=== PATIENT | male | born 1970 | race Caucasian/White ===

== ENCOUNTER 2018-04-21 10:05 | Outpatient (REF) | payer MEDICARE, SELFPAY ==
[2018-04-21 22:02] LABS: BUN 16 mg/dL (7-18); CREATININE 1.12 mg/dL (0.70-1.30); Calcium 9.2 mg/dL (8.5-10.1); Chloride 103 mmol/L (98-107); Glucose 92 mg/dL (70-100); Sodium 141 mmol/L (136-145)
[2018-04-24 15:16] LABS: Testosterone, Free 18.5 ng/dL (4.26-16.4); Testosterone, Total 617 ng/dL (240-950)
== END 2018-04-21 10:25 ==
LOC: NCHCN 10:05
PROVIDERS: PCP Internal Medicine; Visit Provider Internal Medicine
DX: E29.1 Testicular hypofunction (principal); I10 Essential (primary) hypertension
CPT/HCPCS: 80048; 84402; 84403

== ENCOUNTER 2018-11-10 14:22 | Outpatient (REF) | payer MEDICARE, SELFPAY ==
[2018-11-10 22:22] LABS: TSH (W/Ref FT4) 1.59 uIU/mL (0.358-3.74)
[2018-11-13 16:43] LABS: Testosterone, Free 6.98 ng/dL (4.26-16.4); Testosterone, Total 279 ng/dL (240-950)
== END 2018-11-10 14:42 ==
LOC: NCHCN 14:22
PROVIDERS: PCP Internal Medicine; Visit Provider Internal Medicine
DX: E29.1 Testicular hypofunction (principal); R53.83 Other fatigue; E55.9 Vitamin D deficiency, unspecified
CPT/HCPCS: 82306; 84402; 84403; 84443

== ENCOUNTER 2019-04-27 14:42 | Outpatient (REF) | payer OTHER, SELFPAY ==
[2019-04-27 21:29] LABS: Anion Gap 9.8 mmol/L (3-11); BUN 14 mg/dL (7-18); CO2 31.2 mmol/L (21.0-32.0); CREATININE 1.15 mg/dL (0.70-1.30); Chloride 99 mmol/L (98-107); Glucose 106 mg/dL (74-106); Sodium 140 mmol/L (136-145)
== END 2019-04-27 15:02 ==
LOC: NCHCN 14:42
PROVIDERS: Visit Provider Internal Medicine
DX: I10 Essential (primary) hypertension (principal)
CPT/HCPCS: 80048

== ENCOUNTER 2019-05-08 14:14 | Outpatient (REF) | payer OTHER, SELFPAY ==
[2019-05-08 21:20] LABS: Lipase 288 U/L (73-393); Magnesium 2.1 mg/dL (1.8-2.4)
== END 2019-05-08 14:34 ==
LOC: NCHCN 14:14
PROVIDERS: Visit Provider Internal Medicine
DX: Z87.19 Personal history of other diseases of the digestive system (principal)
CPT/HCPCS: 83690; 83735

== ENCOUNTER 2019-11-06 01:50 | Outpatient (REF) | payer OTHER, SELFPAY ==
[2019-11-06 21:46] LABS: HCT 45.9 % (40.0-50.0); HGB 15.7 g/dL (13.5-17.5); Mean Corp. HGB Concentration 34.2 g/dL (32.0-36.0); Mean Corpuscular Hemoglobin 29.3 pg (27.0-33.0); Mean Corpuscular Volume 85.8 fL (80-95); Mean Platelet Volume 9.8 fL (8.0-11.0); Platelet Count 245 x1000/uL (130-400); RBC 5.35 m/cumm (4.50-6.00); RBC Distribution Width 13.9 % (11.8-14.1); White Blood Cell Count 9.41 k/cumm (4.4-10.8)
[2019-11-06 22:00] LABS: Calculated LDL 128 mg/dL (<100); Cholesterol 220 mg/dL (<200); HDL Cholesterol 51 mg/dL (40-60); Triglyceride 208 mg/dL (<150)
[2019-11-11 12:28] LABS: Testosterone, Free 3.43 ng/dL (4.26-16.4); Testosterone, Total 156 ng/dL (240-950)
== END 2019-11-06 02:10 ==
LOC: NCHCN 01:50
PROVIDERS: PCP Internal Medicine; Visit Provider Internal Medicine
DX: K92.1 Melena (principal); E29.1 Testicular hypofunction; I10 Essential (primary) hypertension; Z13.6 Encounter for screening for cardiovascular disorders
CPT/HCPCS: 80061; 84402; 84403; 85027

== ENCOUNTER 2019-12-30 12:38 | Outpatient (REF) | payer OTHER, SELFPAY ==
[2020-01-02 16:08] LABS: Testosterone, Free 35.2 ng/dL (4.26-16.4); Testosterone, Total 1100 ng/dL (240-950)
== END 2019-12-30 12:58 ==
LOC: NCHCN 12:38
PROVIDERS: PCP Internal Medicine; Visit Provider Internal Medicine
DX: E29.1 Testicular hypofunction (principal); K92.1 Melena; Z13.220 Encounter for screening for lipoid disorders
CPT/HCPCS: 84402; 84403

== ENCOUNTER 2020-06-29 15:30 | Outpatient (REF) | payer OTHER, SELFPAY ==
[2020-07-02 15:48] LABS: Testosterone, Free 23.7 ng/dL (4.26-16.4); Testosterone, Total 719 ng/dL (240-950)
== END 2020-06-29 15:31 | disposition home or self-care (01) ==
LOC: NCHCN 15:30
PROVIDERS: PCP Internal Medicine; Visit Provider Internal Medicine
DX: E29.1 Testicular hypofunction (principal)
CPT/HCPCS: 84402; 84403

== ENCOUNTER 2020-07-27 14:45 | Outpatient (REF) | payer OTHER, SELFPAY ==
[2020-07-27 22:16] LABS: Hemoglobin A1C 5.6 % (<5.7)
[2020-07-27 22:20] LABS: ALT 57 U/L (16-63); AST 40 U/L (15-37); Albumin 4.3 g/dL (3.4-5.0); Alkaline Phosphatase 74 U/L (46-116); Anion Gap 10.1 mmol/L (3-11); BUN 16 mg/dL (7-18); Bilirubin, Total 0.9 mg/dL (0.2-1.0); CO2 28.9 mmol/L (21.0-32.0); CREATININE 1.1 mg/dL (0.70-1.30); Calcium 9.3 mg/dL (8.5-10.1); Chloride 101 mmol/L (98-107); Glucose 87 mg/dL (74-106); Potassium 4.1 mmol/L (3.5-5.1); Sodium 140 mmol/L (136-145); Total Protein 8.1 g/dL (6.4-8.2)
[2020-08-01 14:05] LABS: Testosterone, Free 17.8 ng/dL (4.26-16.4); Testosterone, Total 540 ng/dL (240-950)
== END 2020-07-27 14:46 | disposition home or self-care (01) ==
LOC: NCHCN 14:45
PROVIDERS: PCP Internal Medicine; Visit Provider Internal Medicine
DX: I10 Essential (primary) hypertension (principal); R73.9 Hyperglycemia, unspecified; E29.1 Testicular hypofunction
CPT/HCPCS: 80053; 84402; 84403; 83036

== ENCOUNTER 2020-10-05 13:16 | Outpatient (REF) | payer OTHER, SELFPAY ==
[2020-10-10 11:20] LABS: Testosterone, Free 12.9 ng/dL (4.26-16.4); Testosterone, Total 392 ng/dL (240-950)
== END 2020-10-05 13:17 | disposition home or self-care (01) ==
LOC: NCHCN 13:16
PROVIDERS: PCP Internal Medicine; Visit Provider Internal Medicine
DX: E29.1 Testicular hypofunction (principal)
CPT/HCPCS: 84402; 84403

== ENCOUNTER 2021-07-31 18:20 | Outpatient (REF) | payer OTHER, SELFPAY ==
[2021-07-31 16:19] LABS: ALT 45 U/L (16-63); AST 34 U/L (15-37); Albumin 4.3 g/dL (3.4-5.0); Alkaline Phosphatase 71 U/L (46-116); Anion Gap 8.6 mmol/L (3-11); BUN 20 mg/dL (7-18); Bilirubin, Total 0.5 mg/dL (0.2-1.0); CO2 28.4 mmol/L (21.0-32.0); CREATININE 1.1 mg/dL (0.70-1.30); Calcium 9.6 mg/dL (8.5-10.1); Calculated LDL 108 mg/dL (<100); Chloride 102 mmol/L (98-107); Cholesterol 177 mg/dL (<200); Glucose 109 mg/dL (74-106); HDL Cholesterol 56 mg/dL (40-60); Sodium 139 mmol/L (136-145); Triglyceride 66 mg/dL (<150)
[2021-08-04 11:16] LABS: Testosterone, Free 44.1 ng/dL (4.26-16.4); Testosterone, Total 1520 ng/dL (240-950)
== END 2021-07-31 18:21 | disposition home or self-care (01) ==
LOC: NCHCN 18:20
PROVIDERS: PCP Internal Medicine; Visit Provider Internal Medicine
DX: E78.5 Hyperlipidemia, unspecified (principal); I10 Essential (primary) hypertension; E29.1 Testicular hypofunction
CPT/HCPCS: 80053; 80061; 84402; 84403

== ENCOUNTER 2021-09-18 09:59 | Outpatient (REF) | payer MEDICARE, SELFPAY ==
[2021-09-23 10:32] LABS: Testosterone, Free 20.8 ng/dL (4.06-15.6); Testosterone, Total 770 ng/dL (240-950)
== END 2021-09-18 10:00 | disposition home or self-care (01) ==
LOC: NCHCN 09:59
PROVIDERS: PCP Internal Medicine; Visit Provider Internal Medicine
DX: E29.1 Testicular hypofunction (principal)
CPT/HCPCS: 84402; 84403

== ENCOUNTER 2021-11-08 16:57 | Outpatient (REF) | payer MEDICARE, SELFPAY ==
[2021-11-08 23:17] LABS: PSA, Screening 0.7 ng/mL (<=3.5)
[2021-11-13 10:26] LABS: Testosterone, Free 15.4 ng/dL (4.06-15.6); Testosterone, Total 531 ng/dL (240-950)
== END 2021-11-08 16:58 | disposition home or self-care (01) ==
LOC: NCHCN 16:57
PROVIDERS: PCP Internal Medicine; Visit Provider Nurse Practitioner Family
DX: E29.1 Testicular hypofunction (principal); Z12.5 Encounter for screening for malignant neoplasm of prostate
CPT/HCPCS: 84153; 84402; 84403

== ENCOUNTER 2023-05-20 08:53 | Inpatient (IN) | payer MEDICARE, SELFPAY ==
[2023-05-20] VITALS (44 sets, daily range): BP systolic 142–198; BP diastolic 63–115; PULSE 51–97; RESP 8–22; TEMP 36.6–37.2; O2SAT 94–99
--- OUTSIDE RECORDS SUMMARY | 2023-05-20 09:07 | XMS_ITS | CCD ---
Author Name Unknown Address [address] [place] [address] [phone] Organization Unknown Address [address] [place] [address] [id number] Care Team Providers Care Fisheries Officer Name Role Phone AARON GARCIA Attending Physician [phone] AARON GARCIA Rounding (Secondary) Physician [phone] Vital Signs Unknown or Not Available. Allergies Allergy Code Allergy Type Reaction Status TORADOL {Deactivated Allergy} 24122 Drug allergy SUJATA K OUT Active GABAPENTIN 01854 Drug allergy Hives Active Procedures Unknown or Not Available. History of Immunizations Unknown or Not Available. Problems Problem Code Start Date Resolved Date Status Right flank pain 527131474 Active Crohns 38842210 12/06/2022 Resolved Stroke 860741109 12/06/2022 Resolved Results Unknown or Not Available. Active Medications Medication Code Dose Units Frequency Route Modificatio n Start Date/Time Lidocaine 5% Topical application Patch, Extended Release 3882704 1 TRANSDERMAL PATCH NEEDED EVERY 12 HOURS TRANSDERMAL 12/06/2022 13:20 Prescription Detail APPLY 1 TRANSDERMAL PATCH TRANSDERMAL fo r 12 hours a day only. As needed. Medications Administered During Visit Unknown or Not Available. Encounters Encounter Diagnosis Diagnosis Code Start Date Follow-up orthopedic assessment [id number] 05/11/2021 Social History Smoking Status Code Start Date End Date Former smoker [id number] 05/27/2007 Patient Decision Aids Unknown or Not Available. Discharge Instructions You were admitted to [facility] on 05/11/2021 07:51 with a principal diagnosis of Encounter for other orthopedic aftercare You were discharged from [facility] on 05/11/2021 00:00 Should you have any questions prior to discharge, please contact a member of your healthcare team. If you have left the hospital and have any questions, please contact your primary care physician. Chief Complaint and Reason For Visit Unknown or Not Available. Function Status Unknown or Not Available. Plan of Care Unknown or Not Available. Referral/Transition of Care Unknown or Not Available.
--- OUTSIDE RECORDS SUMMARY | 2023-05-20 09:07 | XMS_ITS | CCD ---
Author Name Unknown Address [address] [place] [address] [phone] Organization Unknown Address [address] [place] [address] [id number] Care Team Providers Care Nightman Name Role Phone AARON GARCIA Attending Physician [phone] AARON GARCIA Rounding (Secondary) Physician [phone] Vital Signs Unknown or Not Available. Allergies Allergy Code Allergy Type Reaction Status TORADOL {Deactivated Allergy} 19035 Drug allergy SUJATA K OUT Active GABAPENTIN 89366 Drug allergy Hives Active Procedures Unknown or Not Available. History of Immunizations Unknown or Not Available. Problems Problem Code Start Date Resolved Date Status Right flank pain 575112049 Active Crohns 06478166 12/06/2022 Resolved Stroke 776291583 12/06/2022 Resolved Results Unknown or Not Available. Active Medications Medication Code Dose Units Frequency Route Modificatio n Start Date/Time Lidocaine 5% Topical application Patch, Extended Release 8259161 1 TRANSDERMAL PATCH NEEDED EVERY 12 HOURS TRANSDERMAL 12/06/2022 13:20 Prescription Detail APPLY 1 TRANSDERMAL PATCH TRANSDERMAL fo r 12 hours a day only. As needed. Medications Administered During Visit Unknown or Not Available. Encounters Encounter Diagnosis Diagnosis Code Start Date Localized swelling, mass and lump, upper limb 27 [id number] 04/14/2021 Social History Smoking Status Code Start Date End Date Former smoker 5453210 05/27/2007 Patient Decision Aids Unknown or Not Available. Discharge Instructions You were admitted to [facility] on 04/14/2021 09:28 with a principal diagnosis of Localized swelling, mass and lump, left upper limb You were discharged from [facility] on 04/14/2021 00:00 Should you have any questions prior [...]
--- OUTSIDE RECORDS SUMMARY | 2023-05-20 09:07 | XMS_ITS | CCD ---
Author Name Unknown Address [address] [place] [address] [phone] Organization Unknown Address [address] [place] [address] [phone] Care Team Providers Care Air/Ocean Export Clerk Name Role Phone RANJITH TALBERT Attending Physician [phone] Vital Signs Unknown or Not Available. Allergies Allergy Code Allergy Type Reaction Status TORADOL {Deactivated Allergy} 20307 Drug allergy SUJATA K OUT Active GABAPENTIN 89564 Drug allergy Hives Active Procedures Unknown or Not Available. History of Immunizations Unknown or Not Available. Problems Problem Code Start Date Resolved Date Status Right flank pain 248956978 Active Crohns 35189333 12/06/2022 Resolved Stroke 994875305 12/06/2022 Resolved Results KITTY HUNTERX* - Jesusita ect Date/Time: 04/26/2021 11:10 Test Name Code Test Result Test Units Test Ref Rang e SOURCE= Anterior nasal N/A Tier- PRE-OP N/A SARS COV2 RNA: 31649-0 NEGATIVE N/A REFERENCE RANGE: NEGAT Active Medications Medication Code Dose Units Frequency Route Modificatio n Start Date/Time Lidocaine 5% Topical application Patch, Extended Release 6763828 1 TRANSDERMAL PATCH NEEDED EVERY 12 HOURS TRANSDERMAL 12/06/2022 13:20 Prescription Detail APPLY 1 TRANSDERMAL PATCH TRANSDERMAL fo r 12 hours a day only. As needed. Medications Administered During Visit Unknown or Not Available. Encounters Encounter Diagnosis Diagnosis Code Start Date Pre-surgery testing [id number] 04/26/2021 Social History Smoking Status Code Start Date End Date Former smoker 8713164 05/27/2007 Patient Decision Aids Unknown or Not Available. Discharge Instructions You were admitted to [facility] on 04/26/2021 06:03 with a principal diagnosis of Encounter for preprocedural laboratory examination You had the following tests done:KITTY LOUIS RHEONIX* You were discharged from [facility] on 04/26/2021 06:03 Should you have any questions prior to [...]
--- OUTSIDE RECORDS SUMMARY | 2023-05-20 09:07 | XMS_ITS | CCD ---
Author Name Unknown Address [address] [place] [address] [phone] Organization Unknown Address [address] [place] [address] [phone] Care Team Providers Care Assistant Professor Of English Name Role Phone LU RUFFIN Attending Physician [phone] JOSHUA CHARLES Er Physician 3 [phone] JIMENEZ Lerma Registered Nurse [phone] Vital Signs Vital Sign Value Unit Date/Time Recent/Initial ? BMI (Body Mass Index) 29.84 kg/m^2 12/06/2022 11: 17 Initial VS Weight Measured 220 lbs 12/06/2022 11:17 Ini tial VS Height 72 in 12/06/2022 11:17 Initial VS BSA (Body Surface Area) 2.25 m^2 12/06/2022 1 1:17 Initial VS BP Systolic 161 mmHg 12/06/2022 11:17 Initial VS BP Diastolic 67 mmHg 12/06/2022 11:17 Initia l VS Respiratory Rate 16 bpm 12/06/2022 11:17 In itial VS Heart Rate 99 bpm 12/06/2022 11:17 Initial VS O2 % BldC Oximetry 99 % 12/06/2022 11:17 Initial VS Body Temperature 36.7 degrees 12/06/2022 11:17 In itial VS Allergies Allergy Code Allergy Type Reaction Status TORADOL {Deactivated Allergy} 19762 Drug allergy SUJATA K OUT Active GABAPENTIN 16326 Drug allergy Hives Active CHANTIX 355507 Drug allergy Active Procedures Unknown or Not Available. History of Immunizations Unknown or Not Available. Problems Problem Code Start Date Resolved Date Status Right flank pain 552362698 Active Crohns 98760571 12/06/2022 Resolved Stroke 727746010 12/06/2022 Resolved Results Unknown or Not Available. Active Medications Medications Administered During Visit Medication Dose Units Frequency Route Date/Time of Last Dose LIDOCAINE PATCH 5% 1 PATCH X1 TOP 0 12/06/2022 13:03 Encounters Encounter Diagnosis Diagnosis Code Start Date Strain of biceps brachii muscle and/or tendon 71 0566097 12/06/2022 Social History Smoking Status Code Start Date End Date Former smoker 4379278 05/27/2007 Patient Decision Aids Unknown or Not Available. Discharge Instructions You were admitted to [facility] on 12/06/2022 10:25 with a principal diagnosis of Strain of muscle, fascia and tendon of other parts of biceps, right arm, initial encounter You were discharged from [facility] on 12/06/2022 13:42 Should you have any questions prior to discharge, please contact a member of your healthcare team. If you have left the hospital and have any questions, please contact your primary care physician. Chief Complaint and Reason For Visit Chief Complaint Date of Onset RIGHT ARM INJURY 12/06/2022 Function Status Unknown or Not Available. Plan of Care Unknown or Not Available. Referral/Transition of Care Unknown or Not Available.
--- OUTSIDE RECORDS SUMMARY | 2023-05-20 09:07 | XMS_ITS | CCD ---
Author Name Unknown Address [address] [place] [address] [id number] Organization Unknown Address [address] [place] [address] [phone] Care Team Providers Care Field Underwriter Name Role Phone RANJITH TALBERT Attending Physician [phone] Vital Signs Vital Sign Value Unit Date/Time Recent/Initial ? BP Systolic 118 mmHg 04/28/2021 10:53 Initial VS BP Diastolic 57 mmHg 04/28/2021 10:53 Initia l VS Respiratory Rate 14 bpm 04/28/2021 10:53 In itial VS Heart Rate 71 bpm 04/28/2021 10:53 Initial VS O2 % BldC Oximetry 98 % 04/28/2021 10:53 Initial VS Body Temperature 36.1 degrees 04/28/2021 10:53 In itial VS Allergies Allergy Code Allergy Type Reaction Status TORADOL {Deactivated Allergy} 15971 Drug allergy SUJATA K OUT Active GABAPENTIN 88572 Drug allergy Hives Active Procedures Procedure Code Procedure Type Date Excision, Tumor/Vascular Mal formation, Soft Tissue Of Hand/Finger, Subcutaneous; Less Than 1.5 cm 42163 CPT 04/28/2021 Anesthesia, Nerves/Muscles/T endons/Fascia & Bursae, Lower Arm/Hand 53158 CPT 04/28/2021 History of Immunizations Unknown or Not Available. Problems Problem Code Start Date Resolved Date Status Right flank pain 343451208 Active Crohns 58218470 12/06/2022 Resolved Stroke 290991625 12/06/2022 Resolved Results Unknown or Not Available. Active Medications Medications Administered During Visit Medication Dose Units Frequency Route Date/Time of Last Dose LACTATED RINGERS 1000ML 100 ML X1 04/28/2021 08:58 MIDAZOLAM INJ SDV: 2MG/2ML 2 MG X1 IVP 04/28/2021 09:06 ACETAMINOPHEN INJ SDV: 1000MG/100ML 1000 MG X1 04/28/2021 08:58 Encounters Encounter Diagnosis Diagnosis Code Start Date Localized swelling, mass and lump, left upper li mb R2232 04/28/2021 Social History Smoking Status Code Start Date End Date Former smoker 9482925 05/27/2007 Patient Decision Aids Unknown or Not Available. Discharge Instructions You were admitted to [facility] on 04/28/2021 08:07 with a principal diagnosis of Localized swelling, mass and lump, left upper limb You had the following procedures done:Excision, Tumor/Vascular Malformation, Soft Tissue Of Hand/Finger, Subcutaneous; Less Than 1.5 cmAnesthesia, Nerves/Muscles/Tendons/Fascia & Bursae, Lower Arm/Hand You were discharged from [facility] on 04/28/2021 11:05 Should you have any questions prior to [...]
--- NOTE | 2023-05-20 09:36 | W.ED.GENAD ---
Discharge Plan Disposition Patient Disposition: Admit to [facility] Discharge Details Chief Complaint: Abd Prob Clinical Impression: Abnormal transaminases, Acute non-ST elevation myocardial infarction (NSTEMI), Abdominal pain, Chest pain Primary Care Provider: Lisa Brower ED Provider: Rebecca Hendricks Home Meds and New Rx's Prescriptions: No Action testosterone cypionate 200 mg/mL oil 100 mg subcut Q7D Patient Comments: INJECT 0.5ML INTRAMUSCULARLY WEEKLY Medical Decision Making This is a 52-year-old male with a history of Crohn's disease who is not currently on any treatment and 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 He presents with left lower quadrant pain similar to prior Crohn's flares in the past. He states he has had nausea but no vomiting. He denied any blood in the stool but said there was a small amount of red blood on the toilet paper when he wipes. He has had greater than 10 episodes of diarrhea since 3 AM this morning. He has had prior small bowel resection. He denies any recent antibiotics, sick contacts, unusual foods or foreign travel. He denies any fever. His abdominal exam is reassuring. My plan is to obtain blood work including a CBC, comprehensive metabolic panel, lipase and CT of the abdomen and pelvis. Will also check a urine and give him IV acetaminophen for pain. We will hydrate him while we await his renal function. Differential Diagnosis Differential Diagnosis: Crohn's exacerbation, small bowel obstruction, gastroenteritis Medical Records Medical records reviewed: Yes I reviewed the patient's medical records. Imaging Data Radiologic Study: Imaging: CT Scan (CTA of the chest) Radiologist's impression: Review of impression: No acute thoracic abnormality identified. Radiologic Study #2: Imaging: CT Scan (CT abdomen pelvis with IV contrast) Radiologist's impression: View impression: No convincing evidence of acute abnormality within the abdomen or pelvis. Various incidental and/or nonacute findings as reported above. Lab Data Lab results reviewed: Yes I reviewed the patient's lab results. ECG Data Attestation: I personally reviewed and interpreted this ECG (s) as follows: Prior ECG tracings: available for review HPI General Mode of arrival: ambulatory. Date/Time Provider Initiated Documentation: 05/20/23 09:36. Limitations to Documentation: no limitations. Information obtained by: patient. HPI Narrative: Time seen was 9:46 AM in bed 8. Patient is a 52-year-old male with history of Crohn's disease who is not currently on any active treatment or steroids who presents with left lower quadrant abdominal pain similar to his previous episodes which began at 3 AM this morning. The pain has been associated with greater than 10 episodes of diarrhea which she states was not bloody although he did notice a small amount of red blood on the toilet paper. He has had nausea but no vomiting. He denies any fevers or chills. He denies any foreign travel, recent antibiotics, sick contacts or unusual foods. He does have a history of a prior small bowel obstruction. He did not have a colostomy bag. He tells me he has not seen a line maintenance supervisor in 3 years. He initially denied any chest pain but later endorsed some chest tightness which he said began at 4 AM. The patient tells me he cannot take steroids because it causes him to have what sounds like steroid psychosis. He denies any aggravating or inciting factors. He denies any fevers or chills. He tells me he was on metoprolol which was discontinued by Related Data Home Medications Medication Instructions Recorded Confirmed testosterone cypionate 200 mg/mL 100 mg subcut Q7D 05/20/23 05/20/23 intramuscular oil Allergies Allergy/AdvReac Type Severity Reaction Status Date / Time gabapentin Allergy Intermediate Hives Unverified 05/20/23 11:22 ketorolac tromethamine AdvReac Severe blackout Unverified 05/20/23 11:22 [From Toradol] NSAIDS (Non-Steroidal AdvReac Intermediate GI Bleeding Unverified 05/20/23 11:22 Anti-Inflamma chantex AdvReac Intermediate Uncoded 05/20/23 11:22 General Stated Complaint: Abd Prob KEVIN: 3 Review of Systems Narrative: see hpi Cardiovascular Comments: The patient did admit to chest tightness which began at 4 AM which was 3 out of 10 in severity and. He attributed to dehydration. PFSH All Active Problems (Updated 05/20/23 @ 15:39 by Rebecca Hendricks MD) Chest pain (Acute) Abdominal pain (Acute) Acute non-ST elevation myocardial infarction (NSTEMI) (Acute) Abnormal transaminases (Acute) Social History Smoking/Tobacco Use Status: Former Tobacco Use Smoking risk assessment performed?: Yes Alcohol Intake: former Drug use: Occasionally Substance use type: marijuana Housing: apartment Do you feel safe at home: Yes Do you feel safe in your relationship?: Yes Exam Narrative Exam Narrative: The patient is a well-developed well-nourished male who is alert and oriented who is mildly uncomfortable. He is mildly hypertensive with a blood pressure 174/115. Heart rate 94. Respiratory rate is 22 but he did not appear tachypneic. He was able to speak in full sentences. He is afebrile with a normal room air O2 sat of 97%. Const General: cooperative, healthy appearing, no acute distress, well developed, well groomed and well hydrated Nutritional Appearance: average body habitus and well nourished Orientation: alert, awake and oriented x3 HENMT Head: normal to inspection, normocephalic and atraumatic Ears: hearing grossly normal bilaterally and external ears normal General nose exam: external nose normal, nares normal and no nasal discharge Face and sinus: normal facial exam, sinuses nontender and face symmetric Mouth: oral mucosae normal, lip normal, tongue normal, oropharynx normal, moist mucous membranes and other (Normal phonation. The patient is handling secretions.) Throat: posterior oropharynx normal and uvula midline Eyes General: appearance normal, both eyes and all related structures Eyelids: eyelids normal Conjunctivae: conjunctivae normal Sclera: sclerae normal Cornea: corneas normal Pupils: PERRL EOM: EOM intact bilaterally and No nystagmus Neck Neck: normal visual inspection, full ROM, no lymphadenopathy, no meningeal signs, trachea midline and supple Lymphatic: no lymphadenopathy noted Chest Chest: normal inspection of the chest Resp Effort & Inspection: normal respiratory effort, able to speak in complete sentences, no audible wheezes, no nasal flaring, no respiratory distress, no retractions, no stridor, not tachypneic, no tracheal deviation, no use of accessory muscles, No prolonged expiratory phase and other (Normal inspiratory to expiratory ratio.) Auscultation: clear to auscultation bilaterally, no rales, no rhonchi, no wheezes and no rubs Tactile Fremitus: tactile fremitus absent Cardio Jugular venous pressure: no JVD Palpation: normal PMI Rate: regular rate Rhythm: regular rhythm Heart Sounds: S1 normal, S2 normal, no gallops, no murmurs and no rubs GI Inspection: other (The patient has a well-healed midline surgical incision. There is a small ) Palpation: soft, no hepatosplenomegaly, no guarding, no hepatosplenomegaly and tender (Mild left lower quadrant tenderness without rebound or guarding. ) in the LLQ; not at McBurney's point and with no rebound tenderness Percussion: normal to percussion Auscultation: normal bowel sounds Rectal Exam: visual inspection normal Other: Normal external male genitalia. His testes feel small bilaterally no hernias. A digital rectal exam was not done but examination of the anus revealed no fissure. Skin General skin exam: no rashes or lesions noted, turgor normal, no petechiae, no purpura and other (Skin is normal for ethnicity.) Lesions: no lesions Rashes: no rashes Trauma: no lacerations or abrasions Neuro General: patient alert, patient awake, patient oriented x3, moves all extremities, no meningeal signs, no focal motor deficits and CN's II-XI intact bilaterally Cranial Nerves: CN's II-XI intact bilaterally, PERRL, accommodation normal, EOM intact bilaterally, no nystagmus, facial strength normal, tongue midline, hearing normal and no nystagmus Cognition: normal cognition Speech: speech normal Gait: normal gait Motor: muscle tone normal throughout and strength 5/5 throughout Sensory Exam: no sensory deficits noted Pupils: Normal pupillary reactivity/response: bilateral Extrem General: normal to inspection, full ROM, capillary refill normal, no clubbing, cyanosis or edema and no calf tenderness Psych Appearance: grossly normal Affect: normal affect Attitude: cooperative Thought Process: normal Thought Content: normal Insight: insight good Judgment: judgment good Other: The patient appears to have capacity make medical decisions. Course 10:46am the patient had initially denied any chest pain to me. He now tells me that he has had chest tightness since full ROM that waxes and wanes. He tells me he was on metoprolol but that was discontinued and his physician was aware. He has no known history of coronary disease. The chest pain is described as tightness it does not radiate to his neck or back. He does have some lower back pain. He does not take medications for erectile dysfunction. I will write for aspirin and nitroglycerin. His EKG does not show evidence of ST elevation SC but his troponin is positive. 12:20 PM The patient is no longer experiencing any chest tightness. I have ordered a repeat pain-free EKG. We are still awaiting the results of his CT scans. My plan is to consult cardiology at [facility]. He is still complaining of some mild abdominal pain. I have advised him he will likely be admitted overnight and he is requesting narcotics for his abdominal pain. I will write for 50 mcg of fentanyl. 12:56 PM the patient is now complaining of increasing chest pain. His CT and CT of the abdomen and pelvis are negative. I had ordered a pain-free EKG but ordered a third EKG now that he is having recurrent pain and start him on heparin 1401 p.m. I have spoken with Dr. Marcos the benefits counselor on-call from [facility]. He agreed with keeping the heparin as a drip without a bolus. He recommendeded discontinuing it if the patient has any more GI bleeding. He has not had any further bleeding in the department. We are awaiting his second troponin. If his second troponin is going up he will likely be transferred to [facility] for cath. If his second troponin is lesser unchanged he will likely be admitted here overnight for stress test in the morning. I have updated the patient's on the consult. He is denying any chest tightness now but is complaining of left lower quadrant abdominal pain and I have rewritten an order for 50 mcg of fentanyl for abdominal pain. 1405 PM patient's is at the bedside. I have updated her on the plan. 1441: The patient's second troponin has decreased slightly. We have notified the transfer center at [facility]. We have paged the hospitalist for admission here. I will update the patient his labs. 15:37 p.m.: I have spoken with Dr. Herrera the hospitalist. He asked that we add a creatinine kinase to the patient's lab work. I have called the lab and they are able to add it on. The patient will be admitted here. He tells me currently his chest discomfort is 2 out of 10 in severity and we have increased his nitroglycerin drip to 20 mics. Vital Signs Vital signs: Vital Signs Temperature 36.6 C 05/20/23 08:59 Pulse 94 H 05/20/23 08:59 Respiratory Rate 22 05/20/23 08:59 Blood Pressure 174/115 H 05/20/23 08:59 Pulse Oximetry 97 05/20/23 08:59 Temperature 36.6 C 05/20/23 08:59 Temperature Source Oral 05/20/23 08:59 Pulse 94 H 05/20/23 08:59 Respiratory Rate 22 05/20/23 08:59 Respiratory Effort Normal, Non-Labored 05/20/23 09:05 Blood Pressure 174/115 H 05/20/23 08:59 Blood Pressure Position Sitting 05/20/23 08:59 Pulse Oximetry 97 05/20/23 08:59 Oxygen Delivery Method Room Air 05/20/23 08:59 Oxygen Flow Rate 0 05/20/23 08:59 Pain Level 8 05/20/23 08:59 Lab/Test Results Lab/Test Results: Positive troponin. Second troponin is declining. Mild elevation of transaminases Critical Care Time Critical Care Time Critical Care Time: Yes Total Critical Care Time: 61 Attestation: This includes time at the bedside, review of labs and old records. Review of EKGs and consultation with cardiology and hospitalist and review of radiographs and time with the family.
[2023-05-20 09:45] LABS: Bilirubin Negative (Negative); Blood Negative (Negative); Clarity Clear (Clear); Glucose Negative (Negative); Ketones Negative (Negative); Leukocyte Esterase Negative (Negative); Nitrite Negative (Negative); Specific Gravity 1.015 (1.005-1.025); Urobilinogen 0.2 mg/dL (Up to 0.2)
[2023-05-20 10:18] LABS: Abs Immature Grans 0.03 10^3/uL (0.0-0.06); Absolute Basophil Count 0.04 10^3/uL (0.0-0.2); Absolute Eosinophil Count 0.11 10^3/uL (0.0-0.7); Absolute Lymphocyte Count 1.31 10^3/uL (1.2-3.4); Absolute Monocyte Count 0.75 10^3/uL (0.1-0.8); Absolute Neutrophil Count 8.13 10^3/uL (1.2-6.7); Basophils % 0.4; Eosinophils % 1.1; HCT 53.8 % (40.0-50.0); HGB 18.1 g/dL (13.5-17.5); Immature Grans % 0.3; Lymphocytes % 12.6; MCH 28.8 pg (27.0-33.0); MCHC 33.6 % (32.0-36.0); MCV 86 fL (80-95); MPV 8.7 fL (8.0-11.0); Monocytes % 7.2; Neutrophils % 78.4; Platelet Count 200 10^3/uL (130-400); RBC 6.29 10^6/uL (4.36-5.78); RDW 13.2 % (11.8-14.1); RDW-SD 41.3 fL; WBC 10.37 10^3/uL (4.4-10.8)
[2023-05-20] MEDS: Normal Saline 1,000 ML 1000 ML IV (10:18)
[2023-05-20] MEDS: Ondansetron 4 MG/2 ML VIAL IVP (10:18)
[2023-05-20] MEDS: ACETAMINOPHEN 1,000 MG/100 ML BTL 400 MG IVPB (10:18)
--- NOTE | 2023-05-20 10:30 | RT.EKG_ITS ---
APPROVED REPORT Exam: Resting ECG Reason for Exam: Elevated Tropinon Patient Location: E HR:60 bpm ECG Measurements Heart Rate 60 AXIS OH 177 P 58 QRSd 96 QRS 21 QT 399 T 51 QTc 397 Conclusion Sinus rhythm...normal P axis, V-rate 60- 99 NSR, borderline LAD, No significant ST elev or depression, NO STEMI, no previous available for compar arabella
[2023-05-20 10:37] LABS: ALT 75 U/L (16-63); AST 54 U/L (15-37); Albumin 4.1 g/dL (3.4-5.0); Alkaline Phosphatase 82 U/L (46-116); Anion Gap 8.6 mmol/L (3-11); BUN 23 mg/dL (7-18); Bilirubin, Total 0.6 mg/dL (0.2-1.0); CO2 28.4 mmol/L (21.0-32.0); CREATININE 1.3 mg/dL (0.70-1.30); Calcium 9.4 mg/dL (8.5-10.1); Chloride 103 mmol/L (98-107); Estimated GFR 66.51 (mL/min/1.73m2); Glucose 104 mg/dL (74-106); Lipase 50 U/L (16-77); Magnesium 2.2 mg/dL (1.8-2.4); Potassium 4.2 mmol/L (3.5-5.1); Sodium 140 mmol/L (136-145); Total Protein 8.3 g/dL (6.4-8.2)
[2023-05-20 10:38] LABS: Troponin I 74 ng/L (<or=60)
[2023-05-20] MEDS: nitroGLYcerin 0.4 MG TAB SL (10:58)
[2023-05-20] MEDS: Aspirin E.C. 325 MG TABEC PO (10:58)
[2023-05-20] MEDS: Clopidogrel 300 MG TAB PO (11:19)
[2023-05-20] MEDS: Normal Saline - Diluent 50 ML VIAL IJ (11:42)
[2023-05-20] MEDS: Omnipaque 350 MG/ML 100 ML BTL IJ (11:43)
[2023-05-20] MEDS: Normal Saline Flush 10 ML SYR IVP (11:44)
--- NOTE | 2023-05-20 11:53 | DI.CT_ITS ---
Exam(s) CT CHEST PE ABD PELVIS W EXAM: CT CHEST PE ABD PELVIS W CLINICAL HISTORY: chest tightness, pleuitic. TECHNIQUE: Imaging Protocol: Axial CT angiography was performed with multi-slice acquisition and m ulti-planar and/or 3D reconstructions. CONTRAST MATERIAL: Intravenous: Omnipaque 350 Contrast volume:100 ml Oral: None COMPARISON: No exams were available for comparison FINDINGS: CHEST: PULMONARY ARTERIES: There are no intra-arterial filling defects to suggest the presence of acute pulm onary emboli. LUNGS: There is no evidence of pulmonary infarction. There are no pleural effusions. MEDIASTINUM: There is no hilar nor mediastinal adenopathy. Visualized thyroid unremarkable. CARDIAC: Heart size is normal. There is no pericardial effusion. There is no significant shift of t he interventricular septum.Caliber of the thoracic aorta is within normal limits. There is no eviden ce of aortic dissection. OSSEOUS: No significant osseous lesions.. ABDOMEN: GI: There has been partial right hemicolectomy. Some left-sided small bowel loops are slightly promi nent in diameter measuring up to 3.4 cm and exhibits some fold thickening. There is no high-grade hanna wel obstruction. There is no abnormal fluid nor collection at the anastomosis in the right-side of t he abdomen. There is no ascites. LIVER: There are no focal hepatic lesions nor dilatation of intrahepatic ducts. Mild steatosis evide nt. GALLBLADDER/BILIARY: No obvious gallbladder pathology. CBD is not dilated. PANCREAS: No evidence of pancreatic mass nor dilatation of the pancreatic duct. SPLEEN: Spleen is not enlarged. There are no intrasplenic lesions. Splenic and portal veins are varela nt. ADRENALS: There are no significant adrenal masses. KIDNEYS:No cysts evident. No calculi nor hydronephrosis. No solid renal masses. ABDOMINAL AORTA: Abdominal aorta is not enlarged. LYMPH NODES: There is no retroperitoneal or para-aortic adenopathy. ABDOMINAL WALL/GI: No evidence of significant anterior abdominal wall hernia. No bowel obstruction. PELVIS: LYMPH NODES: There is no intrapelvic nor inguinal adenopathy. GI: Appendix surgically absent. Prior partial right hemicolectomy.There is sigmoid diverticuli. No obvious acute diverticulitis. URINARY BLADDER: Mild uniform thickening of the urinary bladder wall. No obvious distinct mass nor r adiopaque calculi within the bladder lumen. REPRODUCTIVE: Prostate gland is enlarged. Measures 5 cm wide. No obturator adenopathy evident. OSSEOUS: No significant osseous lesions. IMPRESSION: 1. There is evidence of partial right hemicolectomy. No evidence of free air, high-grade bowel obstr uction, nor abscess. 2. There few slightly prominent diameter small bowel jejunal loops in left side of the abdomen which also exhibits some thickened folds. May represent element of enteritis. 3. Sigmoid diverticuli. No evidence of acute diverticulitis. First read by [facility]. RADIATION DOSE DELIVERED: Total DLP DATA REPOSITORY: All CT scans at this facility are submitted to the National Radiology Data Registry (NRDR) Dose Index Registry (DIR) with the [employer] (ACR). RADIATION OPTIMIZATION: All CT scans at this facility use at least one of these dose optimization te chniques: automated exposure control; mA and/or kV adjustment per patient size (includes targeted exa ms where dose is matched to clinical indication); or iterative reconstruction.
--- NOTE | 2023-05-20 12:15 | RT.EKG_ITS ---
APPROVED REPORT Exam: Resting ECG Reason for Exam: repeat, pain free Patient Location: E HR:64 bpm ECG Measurements Heart Rate 64 AXIS DC 175 P 51 QRSd 96 QRS 7 QT 382 T 47 QTc 393 Conclusion Sinus rhythm...normal P axis, V-rate 60- 99 Pain free EKG unchanged from prev. Nonspecific conduction delay, borderline LAD. No STEMI
[2023-05-20] MEDS: fentaNYL 100 MCG/2 ML VIAL 50 MCG IVP ×3 (12:28→17:47)
--- NOTE | 2023-05-20 12:45 | RT.EKG_ITS ---
APPROVED REPORT Exam: Resting ECG Reason for Exam: chest tightness Patient Location: E HR:62 bpm ECG Measurements Heart Rate 62 AXIS CA 175 P 46 QRSd 95 QRS -2 QT 397 T 41 QTc 404 Conclusion Sinus rhythm...normal P axis, V-rate 60- 99 LAD, nonspecific STTW changes. No STEMI, unchanged from previous. Pt is having chest tightness, 08/03
--- NOTE | 2023-05-20 12:52 | DI.VRAD_ITS ---
PROCEDURE INFORMATION: Exam: CTA Chest With Contrast Exam date and time: 05/20/2023 11:41 AM Age: 52 years old Clinical indication: Other: Chest tightness; Abdominal pain; Other: HX crohns; Prior surgery; Surgery date: 6+ months; Surgery type: Colon - SX TECHNIQUE: Imaging protocol: Computed tomographic angiography of the chest with contrast. Exam focused on the arteries. Radiation optimization: All CT scans at this facility use at least one of these dose optimization techniques: automated exposure control; mA and/or kV adjustment per patient size (includes targeted exams where dose is matched to clinical indication); or iterative reconstruction. Contrast material: OMNI 350; Contrast volume: 100 ml; Contrast route: INTRAVENOUS (IV); COMPARISON: No relevant prior studies available. FINDINGS: Pulmonary arteries: No central or segmental filling pulmonary artery filling defects are identified. Aorta: The aorta is normal in caliber. Lungs: The lungs are clear and without focal consolidation. Pleural spaces: No pneumothorax. No pleural effusion. Heart: Unremarkable. No cardiomegaly. No pericardial effusion. Lymph nodes: The visualized supraclavicular region appears normal. No mediastinal or hilar adenopathy is identified. Bones/joints: Unremarkable. Soft tissues: Unremarkable. IMPRESSION: No acute thoracic abnormality identified. PROCEDURE INFORMATION: Exam: CT Abdomen And Pelvis With Contrast Exam date and time: 05/20/2023 11:41 AM Clinical indication: Other: Chest tightness; Abdominal pain; Other: HX crohns; Prior surgery; Surgery date: 6+ months; Surgery type: Colon - SX TECHNIQUE: Imaging protocol: Computed tomography of the abdomen and pelvis with contrast. COMPARISON: No relevant prior studies available. FINDINGS: Liver: The liver is normal in size and contour. Gallbladder and bile ducts: The gallbladder appears unremarkable. No intra- or extra-hepatic biliary ductal dilatation. Pancreas: The pancreas appears normal. Spleen: The spleen appears normal. Adrenal glands: The adrenals appear normal. Kidneys and ureters: The kidneys enhance symmetrically and empty into non-dilated ureters. Stomach and bowel: The stomach appears unremarkable. The small bowel loops are not abnormally dilated. The large bowel loops are not abnormally dilated. Colonic diverticulosis without signs of acute diverticulitis. Postsurgical changes in the proximal colon likely related to prior resection. Appendix: The appendix is surgically absent. Intraperitoneal space: No ascites or significant fluid collection. Vasculature: The aorta is nonaneurysmal. The IVC appears normal. Lymph nodes: There are no enlarged lymph nodes. Urinary bladder: The bladder is distended and demonstrates no focal contour abnormality. Reproductive: Unremarkable as visualized. Bones/joints: Unremarkable. Soft tissues: Unremarkable. IMPRESSION: No acute abdominopelvic abnormality identified. Dictated and Authenticated by: Jurgen Carvajal MD. Ordering:VIK Fernandez MD
[2023-05-20 13:22] LABS: PTT Activated 27.3 sec (23.6-32.8); Prothrombin Time 9.7 sec (9.1-11.1)
[2023-05-20] MEDS: nitroGLYcerin in D5W 50 MG/250 ML BTL IV (13:30)
[2023-05-20] MEDS: Heparin in 0.45% NaCl 25,000 UNIT/250 ML BAG 10 UNIT IV (13:41)
[2023-05-20 14:36] LABS: Troponin I 71 ng/L (<or=60)
[2023-05-20 15:55] LABS: Creatine Kinase 993 U/L (39-308)
--- NOTE | 2023-05-20 15:59 | W.PM.HP.N ---
Date of service: 05/20/23 Time of Service: 15:59 Assessment and Plan Assessment and plan (1) Chest discomfort: Status: Acute Assessment and plan: The patient was recommended asa, plavix, heparin gtt by [facility] cardiology, per the ED provider, followed by an MPI stress test tomorrow. He got off of the nitroglycerin gtt. At this point, he is also evidently refusing heparin gtt. The patient was advised of cardiology recommendations. He was made NPO after midnight, an echocardiogram and an MPI stress test were ordered. (2) Elevated troponin: Status: Acute Assessment and plan: I do not think these represent an ACS. There is no evidence of ischemia on the EKG. In fact, I feel that the slight elevation of the troponin is likely linked to the elevated CPK. See above. (3) Gastroenteritis: Status: Suspected Assessment and plan: Symptoms c/w acute gastroenteritis, possibly viral. MOnitor for recurrence of symptoms. The patient did state he noted some blood when he was wiping and also having a h/o internal hemorrhoids which were fixed. Monitor for GI bleeding. (4) Elevated CPK: Status: Acute Assessment and plan: Possible mild rhabdomyolysis. Doubt autoimmune myositis - CRP negative. Treat with IVF. Recheck CPK in am. (5) Crohn disease: Status: Chronic Assessment and plan: The patient states this was diagnosed at [facility]. His CRP is normal, arguing against a Crohn's flare. Obtain medical records from [facility]. General surgery was consulted. (6) DVT prophylaxis: Status: Acute Assessment and plan: On heparin gtt (7) Discharge planning issues: Status: Acute Assessment and plan: Full code Anticipate discharge home tomorrow after the MPI stress test. History of Present Illness History of Present Illness Chief Complaint: chest pain, Crohn's disease flare Narrative: Mr Woodard is a 52 year old male with PMHx of Crohn's disease s/p multiple abdominal surgeries, not on therapy, as well as h/o hypertension, depression, anxiety, and psychosis, who presented to [facility] ED today c/o nausea and diarrhea >10 times with blood when wiping, typical of his Crohn's flares. According to the ED provider, the patient had previously not tolerated steroid therapy with suspected steroid psychosis as his reaction. While in the ED, the patient did endorse chest heaviness, and his first troponin I came back as 74. Nitroglycerin relieved chest symptoms. EKGs prior to nitroglycerin/with chest pain and after nitroglycerin/without chest pain were unchanged. His repeat troponin was 71. The case was reviewed with [facility] cardiology who recommended aspirin, plavix, heparin gtt. The patient was also started on nitroglycerin gtt in the ED with some relief of symptoms. [facility] cardiology felt the patient should stay at our facility and, if his troponins were negative, should undergo an MPI stress test in am. Hospitalist admission was requested. The patient states that he has had LLQ pain since 3 am. This was accompanied by more than 10 bouts of brown watery diarrhea. Endorses nausea from the pain but no vomiting. States when he is in pain like that, he notices his heart pound and start to hurt. The chest pain is L-sided. Does endorse dizziness with it, stating actually, even you make me dizzy. The chest pain has resolved. Denies fevers. No one else is sick in the household, and he states he has been very careful with the diet. He states that the diagnosis of Crohn's was given to him by a GI doctor at [facility]. He also says he has a h/o CVA at [facility]. Review of Systems All systems reviewed & are unremarkable except as noted in HPI and below PFSH All Active Problems (Updated 05/20/23 @ 20:03 by Carolyn Herrera MD) CVA (cerebral vascular accident) (Chronic) PTSD (post-traumatic stress disorder) (Acute) Discharge planning issues (Acute) DVT prophylaxis (Acute) Elevated CPK (Acute) Elevated troponin (Acute) Chest discomfort (Acute) Obesity (BMI 30.0-34.9) (Acute) Anxiety (Chronic) Depression (Chronic) Hypertension (Chronic) Crohn disease (Chronic) Chest pain (Acute) Abdominal pain (Acute) Acute non-ST elevation myocardial infarction (NSTEMI) (Acute) Abnormal transaminases (Acute) Medical History (Updated 05/20/23 @ 20:03 by Carolyn Herrera MD) Pancreatitis Anemia TBI (traumatic brain injury) Surgical History (Updated 05/20/23 @ 16:07 by Carolyn Herrera MD) H/O abdominal surgery History of incisional hernia repair Social History Smoking/Tobacco Use Status: Former Tobacco Use Smoking risk assessment performed?: Yes Alcohol Intake: former Drug use: Occasionally Substance use type: marijuana Housing: apartment Do you feel safe at home: Yes Do you feel safe in your relationship?: Yes Meds Allergies and Home Medications Allergies Allergy/AdvReac Type Severity Reaction Status Date / Time gabapentin Allergy Intermediate Hives Unverified 05/20/23 11:22 ketorolac tromethamine AdvReac Severe blackout Unverified 05/20/23 11:22 [From Toradol] NSAIDS (Non-Steroidal AdvReac Intermediate GI Bleeding Unverified 05/20/23 11:22 Anti-Inflamma chantex AdvReac Intermediate Uncoded 05/20/23 11:22 Home Medications Medication Instructions Recorded Confirmed Type testosterone cypionate 200 mg/mL 100 mg subcut Q7D 05/20/23 05/20/23 History intramuscular oil Exam Narrative Exam Narrative: General: A very anxious tearful middle-aged male who looks comfortable in bed, A&Ox3, on RA Neurological: A&Ox3, no focal deficits Psychiatric: Anxious, appropriate speech pattern/content Skin: mild erythema inferiorly of the umbilicus; otherwise no visible bruises/rashes HEENT: Atraumatic, normocephalic, EOMI, dry MM, clear oropharynx, no submandibular or cervical lymphadenopathy, no goiter or JVD Cardiovascular: RRR, no m/r/g Lungs: CTAB Gastrointestinal: soft, minimally tender in LLQ, nondistended Genitourinary: deferred Extremities: no edema BLEs, 1+ pedal pulses B, no c/c. No lesions on B feet. Results Imaging Additional studies: CTA chest: No acute thoracic abnormality identified. CT abdomen/pelvis: No acute abdominopelvic abnormality identified. EKG: SR, HR 60, no acute ischemia EKG #2: SR, HR 64, no acute ischemia; however, Q wave in lead 3 is deepening EKG #3: SR, HR 62, no acute ischemia, progressive deepening of Q wave in lead III Labs 05/20/23 09:30 05/20/23 09:30 Labs: Laboratory Results - last 24 hr 05/20/23 05/20/23 05/20/23 09:29 09:30 09:30 WBC 10.37 RBC 6.29 H Hgb 18.1 H Hct 53.8 H MCV 86 MCH 28.8 MCHC 33.6 RDW 13.2 Plt Count 200 MPV 8.7 Immature Gran % 0.3 Neutrophils % 78.4 Lymphocytes % 12.6 Monocytes % 7.2 Eosinophils % 1.1 Basophils % 0.4 Nucleated RBC % 0.0 Absolute Neutrophils 8.13 H Absolute Lymphocytes 1.31 Absolute Monocytes 0.75 Absolute Eosinophils 0.11 Absolute Basophils 0.04 PT 9.7 INR 1.0 APTT 27.3 Sodium 140 Potassium 4.2 Chloride 103 Carbon Dioxide 28.4 Anion Gap 8.6 BUN 23 H Creatinine 1.3 Est GFR (CKD-EPI 2020) 66.51 Glucose 104 Calcium 9.4 Magnesium 2.2 Total Bilirubin 0.6 AST 54 H ALT 75 H Alkaline Phosphatase 82 Creatine Kinase Troponin I Cancelled 74 H* Total Protein 8.3 H Albumin 4.1 Lipase Cancelled Urine Color Yellow Urine Clarity Clear Urine pH 7.0 Ur Specific [place] 1.015 Urine Protein Negative Urine Ketones Negative Urine Blood Negative Urine Nitrite Negative Urine Bilirubin Negative Urine Urobilinogen 0.2 Ur Leukocyte Esterase Negative Urine Glucose Negative 05/20/23 05/20/23 09:30 14:05 WBC RBC Hgb Hct MCV MCH MCHC RDW Plt Count MPV Immature Gran % Neutrophils % Lymphocytes % Monocytes % Eosinophils % Basophils % Nucleated RBC % Absolute Neutrophils Absolute Lymphocytes Absolute Monocytes Absolute Eosinophils Absolute Basophils PT INR APTT Sodium Potassium Chloride Carbon Dioxide Anion Gap BUN Creatinine Est GFR (CKD-EPI 2020) Glucose Calcium Magnesium Total Bilirubin AST ALT Alkaline Phosphatase Creatine Kinase 993 H Troponin I 71 H* Total Protein Albumin Lipase 50 Urine Color Urine Clarity Urine pH Ur Specific [place] Urine Protein Urine Ketones Urine Blood Urine Nitrite Urine Bilirubin Urine Urobilinogen Ur Leukocyte Esterase Urine Glucose Last Vital Signs Temp 36.6 C 05/20/23 08:59 Pulse 64 05/20/23 15:46 Resp 14 05/20/23 15:46 BP 163/96 H 05/20/23 15:46 Pulse Ox 96 05/20/23 15:46 Time Spent Time spent with Patient: 55-74 minutes Time was spent: preparing to see the patient(eg.review tests), obtaining and/or reviewing separately otained hiistory, ordering medications,tests, procedures, referring, communicating with other health hospice care sales consultant, indepentently interpreting results, counseling the patient and care coordination
[2023-05-20] MEDS: Pantoprazole 40 MG VIAL IVP (16:21)
--- NOTE | 2023-05-20 16:37 | W.PC.ACHO ---
Registration Status: REG ER Primary Language: Preferred Language: Estonian ED Information & Data Chief Complaint Abd Prob 05/20/23 10:48 Triage Note pt has severe RLQ pain since 05/20/23 08:59 about 0300. has had about 9 BM (diarrhea). 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 Medical / Surgical History (Last Updated 05/20/23 @ 16:06 by Carolyn Herrera MD) Anemia TBI (traumatic brain injury) (Last Updated 05/20/23 @ 16:07 by Carolyn Herrera MD) H/O abdominal surgery History of incisional hernia repair Most Recent Vital Signs Temperature 36.6 C 05/20/23 08:59 Temperature Source Oral 05/20/23 08:59 Pulse 64 05/20/23 15:46 Pulse 69 05/20/23 15:46 Respiratory Rate 14 05/20/23 15:46 Respiratory Effort Normal, Non-Labored 05/20/23 09:05 Blood Pressure 163/96 H 05/20/23 15:46 Blood Pressure Mean 114 05/20/23 15:46 Blood Pressure Position Sitting 05/20/23 08:59 Pulse Oximetry 96 05/20/23 15:46 Oxygen Delivery Method Room Air 05/20/23 08:59 Oxygen Flow Rate 0 05/20/23 08:59 Pain Level 8 05/20/23 08:59 Allergies gabapentin Allergy (Intermediate, Unverified 05/20/23 11:22) Hives ketorolac tromethamine [From Toradol] Adverse Reaction (Severe, Unverified 05/20/23 11:22) blackout NSAIDS (Non-Steroidal Anti-Inflamma Adverse Reaction (Intermediate, Unverified 05/20/23 11:22) GI Bleeding chantex Adverse Reaction (Intermediate, Uncoded 05/20/23 11:22) spent a month in the [facility] Active Medications Generic Name Dose Route Start Last Admin Trade Name Freq PRN Reason Stop Dose Admin Heparin Sodium/Sodium Chloride 25,000 unit in 250 mls @ 0 mls/hr 05/20/23 13:00 05/20/23 13:41 IV 10 mls/hr INFUSION DIANA 10 mls/hr Administration Protocol As Directed Nitroglycerin/Dextrose 50 mg in 250 mls @ 0 mls/hr 05/20/23 13:15 05/20/23 15:42 IV 6 mls/hr INFUSION DIANA 6 mls/hr Titration Protocol Titrate Iohexol 100 ml 05/20/23 11:45 05/20/23 11:43 Omnipaque 350 Mg/Ml 100 Ml Btl IJ 06/19/23 23:59 100 ml DIRECTED DIANA Administration Nitroglycerin 0.4 mg 05/20/23 10:49 05/20/23 10:58 Nitroglycerin 0.4 Mg Tab SL 0.4 mg Q5 MIN PRN X3 PRN Administration Pantoprazole Sodium 40 mg 05/20/23 16:00 05/20/23 16:21 Pantoprazole 40 Mg Vial IVP 40 mg Q24H DIANA Administration Sodium Chloride 0 ml 05/20/23 09:46 05/20/23 11:44 Normal Saline Flush 10 Ml Syr IVP 10 ml PRN PRN Administration Sodium Chloride 50 ml 05/20/23 11:45 05/20/23 11:42 Normal Saline - Diluent 50 Ml Vial IJ 50 ml .FOR DI USE DIANA Administration IV IV Catheter Type [Right Peripheral IV Forearm] IV Catheter Type [Left Upper Peripheral IV arm] Diagnostics 05/20/23 05/20/23 05/20/23 Range/Units 16:15 16:10 14:05 WBC (4.4-10.8) 10^3/uL RBC (4.36-5.78) 10^6/uL Hgb (13.5-17.5) g/dL Hct (40.0-50.0) % MCV (80-95) fL MCH (27.0-33.0) pg MCHC (32.0-36.0) % RDW (11.8-14.1) % Plt Count (130-400) 10^3/uL MPV (8.0-11.0) fL Immature Gran % Neutrophils % Lymphocytes % Monocytes % Eosinophils % Basophils % Nucleated RBC % (0.0-0.3) % Absolute Neutrophils (1.2-6.7) 10^3/uL Absolute Lymphocytes (1.2-3.4) 10^3/uL Absolute Monocytes (0.1-0.8) 10^3/uL Absolute Eosinophils (0.0-0.7) 10^3/uL Absolute Basophils (0.0-0.2) 10^3/uL PT (9.1-11.1) sec INR (0.9-1.1) APTT (23.6-32.8) sec Sodium (136-145) mmol/L Potassium (3.5-5.1) mmol/L Chloride (98-107) mmol/L Carbon Dioxide (21.0-32.0) mmol/L Anion Gap (3-11) mmol/L BUN (7-18) mg/dL Creatinine (0.70-1.30) mg/dL Est GFR (CKD-EPI 2020) (mL/min/1.73m2) Glucose (74-106) mg/dL Calcium (8.5-10.1) mg/dL Magnesium (1.8-2.4) mg/dL Total Bilirubin (0.2-1.0) mg/dL AST (15-37) U/L ALT (16-63) U/L Alkaline Phosphatase (46-116) U/L Creatine Kinase 993 H (39-308) U/L Troponin I 71 H* Total Protein (6.4-8.2) g/dL Albumin (3.4-5.0) g/dL Lipase Urine Color (Yellow) Urine Clarity (Clear) Urine pH (5-8) Ur Specific Mcgee (1.005-1.025) Urine Protein (Negative) mg/dL Urine Ketones (Negative) mg/dL Urine Blood (Negative) Urine Nitrite (Negative) Urine Bilirubin (Negative) Urine Urobilinogen (Up to 0.2) mg/dL Ur Leukocyte Esterase (Negative) Urine Glucose (Negative) mg/dL COVID-19 Source Pending SARS-CoV-2 (PCR) Pending Influenza Type A (PCR) Pending Influenza Type B (PCR) Pending RSV (PCR) Pending Add-On Test Request Pending 05/20/23 05/20/23 05/20/23 Range/Units 11:32 09:30 09:30 WBC (4.4-10.8) 10^3/uL RBC (4.36-5.78) 10^6/uL Hgb (13.5-17.5) g/dL Hct (40.0-50.0) % MCV (80-95) fL MCH (27.0-33.0) pg MCHC (32.0-36.0) % RDW (11.8-14.1) % Plt Count (130-400) 10^3/uL MPV (8.0-11.0) fL Immature Gran % Neutrophils % Lymphocytes % Monocytes % Eosinophils % Basophils % Nucleated RBC % (0.0-0.3) % Absolute Neutrophils (1.2-6.7) 10^3/uL Absolute Lymphocytes (1.2-3.4) 10^3/uL Absolute Monocytes (0.1-0.8) 10^3/uL Absolute Eosinophils (0.0-0.7) 10^3/uL Absolute Basophils (0.0-0.2) 10^3/uL PT (9.1-11.1) sec INR (0.9-1.1) APTT (23.6-32.8) sec Sodium (136-145) mmol/L Potassium (3.5-5.1) mmol/L Chloride (98-107) mmol/L Carbon Dioxide (21.0-32.0) mmol/L Anion Gap (3-11) mmol/L BUN (7-18) mg/dL Creatinine (0.70-1.30) mg/dL Est GFR (CKD-EPI 2020) (mL/min/1.73m2) Glucose (74-106) mg/dL Calcium (8.5-10.1) mg/dL Magnesium (1.8-2.4) mg/dL Total Bilirubin (0.2-1.0) mg/dL AST (15-37) U/L ALT (16-63) U/L Alkaline Phosphatase (46-116) U/L Creatine Kinase (39-308) U/L Troponin I 74 H* Total Protein 8.3 H (6.4-8.2) g/dL Albumin 4.1 (3.4-5.0) g/dL Lipase 50 Cancelled Urine Color Pending (Yellow) Urine Clarity Pending (Clear) Urine pH Pending (5-8) Ur Specific Mcgee Pending (1.005-1.025) Urine Protein Pending (Negative) mg/dL Urine Ketones Pending (Negative) mg/dL Urine Blood Pending (Negative) Urine Nitrite Pending (Negative) Urine Bilirubin Pending (Negative) Urine Urobilinogen Pending (Up to 0.2) mg/dL Ur Leukocyte Esterase Pending (Negative) Urine Glucose Pending (Negative) mg/dL COVID-19 Source SARS-CoV-2 (PCR) Influenza Type A (PCR) Influenza Type B (PCR) RSV (PCR) Add-On Test Request 05/20/23 05/20/23 Range/Units 09:30 09:29 WBC 10.37 (4.4-10.8) 10^3/uL RBC 6.29 H (4.36-5.78) 10^6/uL Hgb 18.1 H (13.5-17.5) g/dL Hct 53.8 H (40.0-50.0) % MCV 86 (80-95) fL MCH 28.8 (27.0-33.0) pg MCHC 33.6 (32.0-36.0) % RDW 13.2 (11.8-14.1) % Plt Count 200 (130-400) 10^3/uL MPV 8.7 (8.0-11.0) fL Immature Gran % 0.3 Neutrophils % 78.4 Lymphocytes % 12.6 Monocytes % 7.2 Eosinophils % 1.1 Basophils % 0.4 Nucleated RBC % 0.0 (0.0-0.3) % Absolute Neutrophils 8.13 H (1.2-6.7) 10^3/uL Absolute Lymphocytes 1.31 (1.2-3.4) 10^3/uL Absolute Monocytes 0.75 (0.1-0.8) 10^3/uL Absolute Eosinophils 0.11 (0.0-0.7) 10^3/uL Absolute Basophils 0.04 (0.0-0.2) 10^3/uL PT 9.7 (9.1-11.1) sec INR 1.0 (0.9-1.1) APTT 27.3 (23.6-32.8) sec Sodium 140 (136-145) mmol/L Potassium 4.2 (3.5-5.1) mmol/L Chloride 103 (98-107) mmol/L Carbon Dioxide 28.4 (21.0-32.0) mmol/L Anion Gap 8.6 (3-11) mmol/L BUN 23 H (7-18) mg/dL Creatinine 1.3 (0.70-1.30) mg/dL Est GFR (CKD-EPI 2020) 66.51 (mL/min/1.73m2) Glucose 104 (74-106) mg/dL Calcium 9.4 (8.5-10.1) mg/dL Magnesium 2.2 (1.8-2.4) mg/dL Total Bilirubin 0.6 (0.2-1.0) mg/dL AST 54 H (15-37) U/L ALT 75 H (16-63) U/L Alkaline Phosphatase 82 (46-116) U/L Creatine Kinase (39-308) U/L Troponin I Cancelled Total Protein (6.4-8.2) g/dL Albumin (3.4-5.0) g/dL Lipase Urine Color Yellow (Yellow) Urine Clarity Clear (Clear) Urine pH 7.0 (5-8) Ur Specific Mcgee 1.015 (1.005-1.025) Urine Protein Negative (Negative) mg/dL Urine Ketones Negative (Negative) mg/dL Urine Blood Negative (Negative) Urine Nitrite Negative (Negative) Urine Bilirubin Negative (Negative) Urine Urobilinogen 0.2 (Up to 0.2) mg/dL Ur Leukocyte Esterase Negative (Negative) Urine Glucose Negative (Negative) mg/dL COVID-19 Source SARS-CoV-2 (PCR) Influenza Type A (PCR) Influenza Type B (PCR) RSV (PCR) Add-On Test Request Intake and Output - 24 Hour Total 05/20/23 08:53 thru 05/20/23 15:42 Intake Total 1106.6 Balance 1106.6 Weight 106.594 kg Intake: IV 1106.6 Falls Risk Assessment History of Falls No History 05/20/23 09:05 Contributing Factors No Factors 05/20/23 09:05 Ambulatory Aids Independent 05/20/23 09:05 Tubes/Lines None 05/20/23 09:05 Gait Evaluation No gait disturbance 05/20/23 09:05 Cognition No cognitive impairment 05/20/23 09:05 Fall Total Score 0 05/20/23 09:05 Level of Risk Standard/Low Risk 05/20/23 09:05 Problems (Last Updated 05/20/23 @ 16:06 by Carolyn Herrera MD) Discharge planning issues (Acute) DVT prophylaxis (Acute) Elevated CPK (Acute) Elevated troponin (Acute) Chest discomfort (Acute) Crohn disease (Chronic) Chest pain (Acute) Abdominal pain (Acute) Acute non-ST elevation myocardial infarction (NSTEMI) (Acute) Abnormal transaminases (Acute) v v v v v v v v v Sending and/or Receiving Nurses: Please use comment section below to note any information pertinent to the patient hand-off not included above. Information / Comments: Diarrhea multiple times and spots of blood on TP Lower Quad pain Also chest pain EKGs neg for STEMI, positive troponins pain resolved with nitro, heparin and nitro gtt initiated nitro @ 20 heparin @ 1000 units pain free now BPs elevated initially 150s systolic now, sinus RAC and MELLY ivs no further stools voiding fine approx 400 out in ER total pain med tylenol plus 100 fentanyl total neuros intact zofran in ER as well Report received from: Fly MORA RN
[2023-05-20 16:51] LABS: Lab Add On Test DONE
[2023-05-20 16:55] LABS: ESR 18 mm/hr (0-20)
[2023-05-20 16:56] LABS: COVID-19 PCR Negative (Negative); Influenza A PCR Negative (Negative); Influenza B PCR Negative (Negative); RSV PCR Negative (Negative)
[2023-05-20 17:01] LABS: Source Nasopharynx
[2023-05-20 17:07] LABS: C-Reactive Protein 0.16 mg/dL (0.0-0.3)
--- OUTSIDE RECORDS SUMMARY | 2023-05-20 17:12 | XMS_ITS | CCD ---
Author Name Unknown Address [address] [place] [address] [id number] Organization Unknown Address [address] [place] [address] [phone] Care Team Providers Care Processing Manager Name Role Phone RANJITH TALBERT Attending Physician [phone] Vital Signs Vital Sign Value Unit Date/Time [...] Allergy Type Reaction Status TORADOL {Deactivated Allergy} 09106 Drug allergy SUJATA K OUT Active GABAPENTIN 93117 Drug allergy Hives Active Procedures Procedure Code Procedure Type Date Excision, Tumor/Vascular Mal formation, Soft Tissue Of Hand/Finger, Subcutaneous; Less Than 1.5 cm 48746 CPT 04/28/2021 Anesthesia, Nerves/Muscles/T endons/Fascia & Bursae, Lower Arm/Hand 96462 CPT 04/28/2021 History of Immunizations Unknown or Not Available. Problems Problem Code Start Date Resolved Date Status Right flank pain [id number] Active Crohns 74149579 12/06/2022 Resolved Stroke 516342021 12/06/2022 Resolved Results Unknown or Not Available. [...] Code Start Date End Date Former smoker [id number] 05/27/2007 Patient Decision Aids Unknown or Not Available. Discharge Instructions You were admitted to [facility] on 04/28/2021 08:07 with a principal diagnosis of Localized swelling, mass and lump, left upper limb You had the following procedures done:Excision, Tumor/Vascular Malformation, Soft Tissue Of Hand/Finger, Subcutaneous; Less Than 1.5 cmAnesthesia, Nerves/Muscles/Tendons/Fascia & Bursae, Lower Arm/Hand You were discharged from [facility] on 04/28/2021 11:05 Should you have any [...]
--- OUTSIDE RECORDS SUMMARY | 2023-05-20 17:12 | XMS_ITS | CCD ---
Author Name Unknown Address [address] [place] [address] [phone] Organization Unknown Address [address] [place] [address] [phone] Care Team Providers Care Custom Van Converter Name Role Phone LU RUFFIN Attending Physician [phone] JOSHUA CHARLES Er Physician 1 [phone] JIMENEZ Lerma Registered Nurse [phone] Vital Signs Vital Sign Value Unit Date/Time [...] Allergy Type Reaction Status TORADOL {Deactivated Allergy} 90446 Drug allergy SUJATA K OUT Active GABAPENTIN 30321 Drug allergy Hives Active CHANTIX 600983 Drug allergy Active Procedures Unknown or Not Available. History of Immunizations Unknown or Not Available. Problems Problem Code Start Date Resolved Date Status Right flank pain 969696925 Active Crohns 19642469 12/06/2022 Resolved Stroke 346762940 12/06/2022 Resolved Results Unknown or Not Available. Active Medications Medications Administered During Visit Medication Dose Units Frequency Route Date/Time of Last Dose LIDOCAINE PATCH 5% 1 PATCH X1 TOP 0 12/06/2022 13:03 Encounters Encounter Diagnosis Diagnosis Code Start Date Strain of biceps brachii muscle and/or tendon 71 7996078 12/06/2022 Social History Smoking Status Code Start Date End Date Former smoker [id number] 05/27/2007 Patient Decision Aids Unknown or Not Available. Discharge Instructions You were admitted to [facility] on 12/06/2022 10:25 with a principal diagnosis of Strain of muscle, fascia and tendon of other parts of biceps, right arm, initial encounter You were discharged from [facility] on 12/06/2022 13:42 Should you have [...]
--- OUTSIDE RECORDS SUMMARY | 2023-05-20 17:12 | XMS_ITS | CCD ---
Author Name Unknown Address [address] [place] [address] [phone] Organization Unknown Address [address] [place] [address] [phone] Care Team Providers Care Cardiopulmonary Technician And Eeg Tech Name Role Phone AARON GARCIA Attending Physician [phone] AARON GARCIA Rounding (Secondary) Physician [phone] Vital Signs Unknown or Not Available. Allergies Allergy Code Allergy Type Reaction Status TORADOL {Deactivated Allergy} 90668 Drug allergy SUJATA K OUT Active GABAPENTIN 90756 Drug allergy Hives Active Procedures Unknown or Not Available. History of Immunizations Unknown or Not Available. Problems Problem Code Start Date Resolved Date Status Right flank pain 439371297 Active Crohns 20594392 12/06/2022 Resolved Stroke 923388421 12/06/2022 Resolved Results Unknown or Not Available. Active Medications Medication Code Dose Units Frequency Route Modificatio n Start Date/Time Lidocaine 5% Topical application Patch, Extended Release 5754909 1 TRANSDERMAL PATCH NEEDED EVERY 12 HOURS TRANSDERMAL 12/06/2022 13:20 Prescription Detail APPLY 1 TRANSDERMAL PATCH TRANSDERMAL fo r 12 hours a day only. As needed. Medications Administered During Visit Unknown or Not Available. Encounters Encounter Diagnosis Diagnosis Code Start Date Follow-up orthopedic assessment [id number] 05/11/2021 Social History Smoking Status Code Start Date End Date Former smoker [id number] 05/27/2007 Patient Decision Aids Unknown or Not Available. Discharge Instructions You were admitted to [facility] on 05/11/2021 07:51 with a principal diagnosis of Encounter for other orthopedic aftercare You were discharged from [facility] on 05/11/2021 00:00 Should you have any [...]
--- OUTSIDE RECORDS SUMMARY | 2023-05-20 17:12 | XMS_ITS | CCD ---
Author Name Unknown Address [address] [place] [address] [phone] Organization Unknown Address [address] [place] [address] [phone] Care Team Providers Care Wallpaper Printer Name Role Phone KARLA TRIMBLE Attending Physician [phone] KARLA TRIMBLE Er Physician 4 [phone] JOSH Chavez Registered Nurse [phone] Vital Signs Vital Sign Value Unit Date/Time Recent/Initial ? BMI (Body Mass Index) 26.45 kg/m^2 10/19/2021 21: 55 Initial VS Weight Measured 195 lbs 10/19/2021 21:55 Ini tial VS Height 72 in 10/19/2021 21:55 Initial VS BSA (Body Surface Area) 2.12 m^2 10/19/2021 2 1:55 Initial VS BP Systolic 145 mmHg 10/19/2021 21:55 Initial VS BP Diastolic 84 mmHg 10/19/2021 21:55 Initia l VS Respiratory Rate 14 bpm 10/19/2021 21:55 In itial VS Heart Rate 85 bpm 10/19/2021 21:55 Initial VS O2 % BldC Oximetry 95 % 10/19/2021 21:55 Initial VS Allergies Allergy Code Allergy Type Reaction Status TORADOL {Deactivated Allergy} 21887 Drug allergy SUJATA K OUT Active GABAPENTIN 45456 Drug allergy Hives Active CHANTIX 716924 Drug allergy Active Procedures Unknown or Not Available. History of Immunizations Unknown or Not Available. Problems Problem Code Start Date Resolved Date Status Right flank pain 093769503 Active Crohns 59206600 12/06/2022 Resolved Stroke 584603301 12/06/2022 Resolved Results COMPREHENSIVE METABOLIC PANE L (CMP) - Collect Date/Time: 10/19/2021 21:50 Test Name Code Test Result Test Units Test Ref Rang e GLUCOSE 2345-7 93 mg/dL L=70 H=116 BUN 3094-0 27 mg/dL L=6 H=25 CREATININE 2160-0 1.47 mg/dL L=0.67 H=1.17 SODIUM SERUM 2951-2 137 mmol/L L=136 H=145 POTASSIUM SERUM 2823-3 4.1 mmol/L L=3.4 H=5 .2 CHLORIDE SERUM 2075-0 101 mmol/L L=96 H=110 CARBON DIOXIDE (CO2) 2028-9 31 mmol/L L=22 H=34 ANION GAP 60188-0 5.4 mmol/L CALCIUM SERUM 86257-6 9.5 mg/dL L=8.2 H=10. 2 BILIRUBIN TOTAL 1975-2 0.6 mg/dL L=0.0 H=1 .3 ALK. PHOS. 6768-6 77 U/L L=46 H=116 SGOT (AST) 1920-8 62 U/L L=15 H=37 SGPT (ALT) 1742-6 77 U/L L=12 H=78 TOTAL PROTEIN 2885-2 8.0 gm/dL L=6.0 H=8.0 ALBUMIN 1751-7 4.1 gm/dL L=3.4 H=5.0 AGE 51 years eGFR (non-Afr.Amer.) 29183-2 51 mL/min eGFR (Afr-Dutch) 26150-9 61 mL/min LIPASE* - Collect Date/Time: 10/19/2021 21:50 Test Name Code Test Result Test Units Test Ref Rang e LIPASE 178 U/L L=73 H=393 CBC W/ DIFFERENTIAL* - Colle ct Date/Time: 10/19/2021 21:50 Test Name Code Test Result Test Units Test Ref Rang e WBC 6690-2 7.60 th/cmm L=5.00 H=10.00 NEUT % 70.1 % L=40.0 H=80.0 LYMPH % 21.6 % L=10.0 H=50.0 MONO % 66180-2 6.6 % L=2.0 H=12.0 EOS % 0.9 % L=0.0 H=8.0 BASO % 0.5 % L=0.0 H=3.0 IG % 2514-8 0.3 % L=0.0 H=1.1 NRBC % 73490-8 0.0 % L=0.0 H=0.0 NEUT abs count 751-8 5.3 th/cmm L=1.6 H=8. 4 LYMPH abs count 731-0 1.6 th/cmm L=1.5 H=4 .0 MONO abs count 742-7 0.5 th/cmm L=0.2 H=1. 0 EOS abs count 711-2 0.1 th/cmm L=0.0 H=0.5 BASO abs count 704-7 0.0 th/cmm L=0.0 H=0. 2 IG abs count 90331-9 0.0 th/cmm L=0.0 H=0.1 NRBC abs count 22393-8 0.0 mil/cmm L=0.0 H=0. 0 RBC 789-8 5.33 mil/cmm L=4.30 H=6.20 HEMOGLOBIN 718-7 16.0 gm/dL L=13.0 H=17.0 HEMATOCRIT 4544-3 47 % L=45 H=52 MCV 787-2 88 fL L=82 H=92 MCH 785-6 30.0 pg L=27.0 H=31.0 MCHC 786-4 34.0 % L=32.0 H=36.0 RDW-SD 788-0 43.8 fL L=39.0 H=49.0 PLATELET COUNT 777-3 220 th/cmm L=150 H=45 0 Active Medications Medications Administered During Visit Medication Dose Units Frequency Route Date/Time of Last Dose SODIUM CHLORIDE 0.9% 1000ML 1000 ML X1 10/19/2021 22:11 ACETAMINOPHEN INJ IVPB: 1000MG/100ML 1000 MG X1 10/19/2021 22:5 1 ER-oxyCODONE/ACET 6 PACK: 5MG/325MG 1 TAB PRN Q6H PO 10/19/2021 23:41 Encounters Encounter Diagnosis Diagnosis Code Start Date Unspecified injury of thorax, initial encounter [id number] 10/19/2021 Social History Smoking Status Code Start Date End Date Former smoker [id number] 05/27/2007 Patient Decision Aids Unknown or Not Available. Discharge Instructions You were admitted to [facility] on 10/19/2021 21:32 with a principal diagnosis of Unspecified injury of thorax, initial encounter You had the following tests done:CBC W/ DIFFERENTIAL*COMPREHENSIVE METABOLIC PANEL (CMP)LIPASE* You were discharged from [facility] on 10/19/2021 23:47 Should you have any questions prior to discharge, please contact a member of your healthcare team. If you have left the hospital and have any questions, please contact your primary care physician. Chief Complaint and Reason For Visit Chief Complaint Date of Onset RIGHT LOWER QUADRANT PAIN Function Status Unknown or Not Available. Plan of Care Unknown or Not Available. Referral/Transition of Care Unknown or Not Available.
--- OUTSIDE RECORDS SUMMARY | 2023-05-20 17:13 | XMS_ITS | CCD ---
Author Name Unknown Address [address] [place] [address] [phone] Organization Unknown Address [address] [place] [address] [phone] Care Team Providers Care A/C Tech Name Role Phone AARON GARCIA Attending Physician [phone] AARON GARCIA Rounding (Secondary) Physician [phone] Vital Signs Unknown or Not Available. Allergies Allergy Code Allergy Type Reaction Status TORADOL {Deactivated Allergy} 92041 Drug allergy SUJATA K OUT Active GABAPENTIN 40971 Drug allergy Hives Active Procedures Unknown or Not Available. History of Immunizations Unknown or Not Available. Problems Problem Code Start Date Resolved Date Status Right flank pain 209444218 Active Crohns 00289080 12/06/2022 Resolved Stroke 650208773 12/06/2022 Resolved Results Unknown or Not Available. Active Medications Medication Code Dose Units Frequency Route Modificatio n Start Date/Time Lidocaine 5% Topical application Patch, Extended Release 5289489 1 TRANSDERMAL PATCH NEEDED EVERY 12 HOURS TRANSDERMAL 12/06/2022 13:20 Prescription Detail APPLY 1 TRANSDERMAL PATCH TRANSDERMAL fo r 12 hours a day only. As needed. Medications Administered During Visit Unknown or Not Available. Encounters Encounter Diagnosis Diagnosis Code Start Date Localized swelling, mass and lump, upper limb 27 9489976 04/14/2021 Social History Smoking Status Code Start Date End Date Former smoker 4028584 05/27/2007 Patient Decision Aids Unknown or Not Available. Discharge Instructions You were admitted to [facility] on 04/14/2021 09:28 with a principal diagnosis of Localized swelling, mass and lump, left upper limb You were discharged from [facility] on 04/14/2021 00:00 Should you have any [...]
[2023-05-20 18:37] LABS: Troponin I 69 ng/L (<or=60)
[2023-05-20 18:50] LABS: Acetaminophen < 2 ug/mL (10-30)
[2023-05-20 19:10] LABS: Folate 12.3 ng/mL (8.6-20.0); Vitamin B12 536 pg/mL (193-986)
[2023-05-20 19:44] LABS: Bilirubin Negative (Negative); Blood Negative (Negative); Clarity Clear (Clear); Glucose Negative (Negative); Ketones Negative (Negative); Leukocyte Esterase Negative (Negative); Nitrite Negative (Negative); Urobilinogen 0.2 mg/dL (Up to 0.2)
--- NOTE | 2023-05-20 20:00 | W.PM.PROGNOT ---
Date of Service Date of service: 05/20/23 Time of Service: 20:00 Assessment and Plan Assessment and plan (1) Gastroenteritis: Status: Suspected (2) CVA (cerebral vascular accident): Status: Chronic (3) PTSD (post-traumatic stress disorder): Status: Acute (4) Elevated CPK: Status: Acute (5) Elevated troponin: Status: Acute (6) Obesity (BMI 30.0-34.9): Status: Acute (7) Anxiety: Status: Chronic (8) Depression: Status: Chronic (9) Hypertension: Status: Chronic (10) TBI (traumatic brain injury): (11) Chronic anterior anal fissure: Status: Acute (12) Chronic diarrhea: Status: Acute (13) Anal fistula: Status: Acute (14) History of resection of terminal ileum: (15) S/P hemorrhoidectomy: (16) S/P exam under anesthesia with hemorrhoid banding: Subjective Subjective Interval history since last seen: From ED: He presents with left lower quadrant pain similar to prior Crohn's flares in the past. He states he has had nausea but no vomiting. He denied any blood in the stool but said there was a small amount of red blood on the toilet paper when he wipes. He has had greater than 10 episodes of diarrhea since 3 AM this morning. He has had prior small bowel resection. CT: IMPRESSION: 1. There is evidence of partial right hemicolectomy. No evidence of free air, high-grade bowel obstruction, nor abscess. 2. There few slightly prominent diameter small bowel jejunal loops in left side of the abdomen which also exhibits some thickened folds. May represent element of enteritis. 3. Sigmoid diverticuli. No evidence of acute diverticulitis. -I Did extensively review his Chart. s/p TI/cecal resection in 2012. He has had chronic diarrhea since that surgery. Path at that time did not show any Crohn's disease. He has had I & E hemorrhoid surgery done. He also had a chronic fissure that was Dg by colo-rectal in 2013. Pt has had a very long standing hx of rectal bleeding and has had multiple EGD/CE, capsular endoscopy/angiograms adn examinations. There has been no definitive explanations for the bleeding, it still occurred after the hemorrhoid surgery and TI resection. There was no diagnosis of Crohn's. -Patient does have a history of smoking and alcohol abuse. He also uses THC on a regular basis. No signs of cirrhosis/portal hypertension on CT scan Awaiting results of cardiac evaluation. Full consult in progress Objective Last Vital Signs Temp 36.6 C 05/20/23 08:59 Pulse 79 05/20/23 19:01 Resp 11 L 05/20/23 19:01 BP 172/94 H 05/20/23 19:01 Pulse Ox 97 05/20/23 19:01 Laboratory Results - last 24 hr 05/20/23 05/20/23 05/20/23 09:29 09:30 09:30 WBC 10.37 RBC 6.29 H Hgb 18.1 H Hct 53.8 H MCV 86 MCH 28.8 MCHC 33.6 RDW 13.2 Plt Count 200 MPV 8.7 Immature Gran % 0.3 Neutrophils % 78.4 Lymphocytes % 12.6 Monocytes % 7.2 Eosinophils % 1.1 Basophils % 0.4 Nucleated RBC % 0.0 Absolute Neutrophils 8.13 H Absolute Lymphocytes 1.31 Absolute Monocytes 0.75 Absolute Eosinophils 0.11 Absolute Basophils 0.04 ESR 18 PT 9.7 INR 1.0 APTT 27.3 Sodium 140 Potassium 4.2 Chloride 103 Carbon Dioxide 28.4 Anion Gap 8.6 BUN 23 H Creatinine 1.3 Est GFR (CKD-EPI 2020) 66.51 Glucose 104 Calcium 9.4 Magnesium 2.2 Total Bilirubin 0.6 AST 54 H ALT 75 H Alkaline Phosphatase 82 Creatine Kinase Troponin I Cancelled 74 H* C-Reactive Protein Total Protein 8.3 H Albumin 4.1 Lipase Cancelled Vitamin B12 Folate Urine Color Yellow Urine Clarity Clear Urine pH 7.0 Ur Specific [place] 1.015 Urine Protein Negative Urine Ketones Negative Urine Blood Negative Urine Nitrite Negative Urine Bilirubin Negative Urine Urobilinogen 0.2 Ur Leukocyte Esterase Negative Urine Glucose Negative Acetaminophen COVID-19 Source SARS-CoV-2 (PCR) Influenza Type A (PCR) Influenza Type B (PCR) RSV (PCR) Add-On Test Request 05/20/23 05/20/23 05/20/23 09:30 14:05 16:10 WBC RBC Hgb Hct MCV MCH MCHC RDW Plt Count MPV Immature Gran % Neutrophils % Lymphocytes % Monocytes % Eosinophils % Basophils % Nucleated RBC % Absolute Neutrophils Absolute Lymphocytes Absolute Monocytes Absolute Eosinophils Absolute Basophils ESR PT INR APTT Sodium Potassium Chloride Carbon Dioxide Anion Gap BUN Creatinine Est GFR (CKD-EPI 2020) Glucose Calcium Magnesium Total Bilirubin AST ALT Alkaline Phosphatase Creatine Kinase 993 H Troponin I 71 H* C-Reactive Protein 0.16 Total Protein Albumin Lipase 50 Vitamin B12 Folate Urine Color Urine Clarity Urine pH Ur Specific [place] Urine Protein Urine Ketones Urine Blood Urine Nitrite Urine Bilirubin Urine Urobilinogen Ur Leukocyte Esterase Urine Glucose Acetaminophen COVID-19 Source Nasopharynx SARS-CoV-2 (PCR) Negative Influenza Type A (PCR) Negative Influenza Type B (PCR) Negative RSV (PCR) Negative Add-On Test Request 05/20/23 05/20/23 05/20/23 16:15 17:49 17:59 WBC RBC Hgb Hct MCV MCH MCHC RDW Plt Count MPV Immature Gran % Neutrophils % Lymphocytes % Monocytes % Eosinophils % Basophils % Nucleated RBC % Absolute Neutrophils Absolute Lymphocytes Absolute Monocytes Absolute Eosinophils Absolute Basophils ESR PT INR APTT Sodium Potassium Chloride Carbon Dioxide Anion Gap BUN Creatinine Est GFR (CKD-EPI 2020) Glucose Calcium Magnesium Total Bilirubin AST ALT Alkaline Phosphatase Creatine Kinase Troponin I 69 H* C-Reactive Protein Total Protein Albumin Lipase Vitamin B12 536 Folate 12.3 Urine Color Urine Clarity Urine pH Ur Specific [place] Urine Protein Urine Ketones Urine Blood Urine Nitrite Urine Bilirubin Urine Urobilinogen Ur Leukocyte Esterase Urine Glucose Acetaminophen < 2 COVID-19 Source SARS-CoV-2 (PCR) Influenza Type A (PCR) Influenza Type B (PCR) RSV (PCR) Add-On Test Request DONE 05/20/23 18:45 WBC RBC Hgb Hct MCV MCH MCHC RDW Plt Count MPV Immature Gran % Neutrophils % Lymphocytes % Monocytes % Eosinophils % Basophils % Nucleated RBC % Absolute Neutrophils Absolute Lymphocytes Absolute Monocytes Absolute Eosinophils Absolute Basophils ESR PT INR APTT Sodium Potassium Chloride Carbon Dioxide Anion Gap BUN Creatinine Est GFR (CKD-EPI 2020) Glucose Calcium Magnesium Total Bilirubin AST ALT Alkaline Phosphatase Creatine Kinase Troponin I C-Reactive Protein Total Protein Albumin Lipase Vitamin B12 Folate Urine Color Yellow Urine Clarity Clear Urine pH 7.0 Ur Specific [place] 1.010 Urine Protein Negative Urine Ketones Negative Urine Blood Negative Urine Nitrite Negative Urine Bilirubin Negative Urine Urobilinogen 0.2 Ur Leukocyte Esterase Negative Urine Glucose Negative Acetaminophen COVID-19 Source SARS-CoV-2 (PCR) Influenza Type A (PCR) Influenza Type B (PCR) RSV (PCR) Add-On Test Request Time Spent with Patient Time Spent with Patient: <25 minutes Time was spent: preparing to see the patient(eg.review tests), obtaining and/or reviewing separately otained hiistory, ordering medications,tests, procedures, referring, communicating with other health patient care coordinator and indepentently interpreting results
--- NOTE | 2023-05-21 00:31 | W.PM.DS.N ---
Date of service: 05/21/23 Time of Service: 00:31 DS: Diagnosis Discharge Diagnosis (1) Gastroenteritis: Status: Suspected (2) CVA (cerebral vascular accident): Status: Chronic (3) PTSD (post-traumatic stress disorder): Status: Acute (4) Elevated CPK: Status: Acute (5) Elevated troponin: Status: Acute (6) Obesity (BMI 30.0-34.9): Status: Acute (7) Anxiety: Status: Chronic (8) Depression: Status: Chronic (9) Hypertension: Status: Chronic (10) TBI (traumatic brain injury): (11) Chronic anterior anal fissure: Status: Acute (12) Chronic diarrhea: Status: Acute (13) Anal fistula: Status: Acute (14) History of resection of terminal ileum: (15) S/P hemorrhoidectomy: (16) S/P exam under anesthesia with hemorrhoid banding: Discharge Plan Disposition Specific Acute Inpt Facility: Other Discharge Details Reason For Visit: Chest Pain ?unstable Angina Admit Date/Time: 05/20/23 15:57 Admit Provider: Carolyn Herrera Attending Provider: Carolyn Herrera Primary Care Provider: Lisa Brower Hospital Course Hospital Course: 52 male admitted earlier in the afternoon with diarrhea, self-reported as flare of Crohn's disease, then developed some chest discomfort in ER without EKG changes but with marginal elevation of troponin to 74; Cardiology advised DUAP and heparin infusion, with plan for MPI in AM. Followup troponins essentially flat at 71, 69. Shortly after admission patient left the hospital AMA. Home Meds and New Rx's Prescriptions: No Action testosterone cypionate 200 mg/mL oil 100 mg subcut Q7D Patient Comments: INJECT 0.5ML INTRAMUSCULARLY WEEKLY Discharge Data Discharge Date/Time-TO BE ENTERED AT DEPARTURE: 05/20/23 21:30 Discharge Comment: Patient left AMA. Paperwork completed. notified DS: Summary Time Spent with Patient providing and/or coordinating discharge services: Less than 30 minutes Status at Discharge Functional status at discharge: independent ambulation Overall status at discharge: other Mental Status: other Speech and Movement: other Mood: other Affect: other Hospital Course Hospital Course: 52 male admitted earlier in the afternoon with diarrhea, self-reported as flare of Crohn's disease, then developed some chest discomfort in ER without EKG changes but with marginal elevation of troponin to 74; Cardiology advised DUAP and heparin infusion, with plan for MPI in AM. Followup troponins essentially flat at 71, 69. Shortly after admission patient left the hospital AMA. Status at Discharge Functional status at discharge: independent ambulation Overall status at discharge: other Time Spent with Patient Time attestation: Total time spent providing and/or coordinating discharge services: Time spent: Less than 30 minutes Provider Date of admission: [f_Reg Admit Date Time] Primary care physician: [f_Reg Prim Care Provider] Consults: 05/20/23 16:15 Surgical Consult [CONS] Routine Consulting Provider: Olga Clement Consultation Status:: Contact made by Clarification:: Manage/follow per spec. Reason for consult:: Crohn's flare Exam Psych Mental Status: other Speech and Movement: other Mood: other Affect: other DS: Data Vitals/I&O Vitals and I&O: Vital Signs Temperature 37.1 C 05/20/23 21:06 Temperature Source Temporal Artery Scan 05/20/23 21:06 Pulse 97 H 05/20/23 21:06 Pulse 71 05/20/23 19:01 Respiratory Rate 17 05/20/23 21:06 Respiratory Effort Normal 05/20/23 17:30 Respiratory Depth Normal 05/20/23 17:30 Respiratory Pattern Normal 05/20/23 17:30 Blood Pressure 172/94 H 05/20/23 19:01 Blood Pressure Mean 112 05/20/23 19:01 Blood Pressure Position Supine 05/20/23 17:30 Pulse Oximetry 97 05/20/23 21:06 Oxygen Delivery Method Room Air 05/20/23 21:06 Oxygen Flow Rate 0 05/20/23 21:06 Pain Level 10 05/20/23 17:30 Intake & Output 05/20/23 05/20/23 05/21/23 11:59 23:59 11:59 Intake Total 1100 / 1155.567 55.567 / 1155.567 Output Total 725 / 725 Balance 1100 / 430.567 -669.433 / 430.567 Weight 106.594 kg 99.3 kg Intake: IV 1100 / 1155.567 55.567 / 1155.567 Output: Urine 725 / 725 Other: Urine Color Yellow Urine Appearance Clear Urine Odor None Data Completed and Pending Labs on day of discharge: Labs from last 24 hours 05/20/23 05/20/23 05/20/23 18:45 17:59 17:49 WBC RBC Hgb Hct MCV MCH MCHC RDW Plt Count MPV Immature Gran % Neutrophils % Lymphocytes % Monocytes % Eosinophils % Basophils % Nucleated RBC % Absolute Neutrophils Absolute Lymphocytes Absolute Monocytes Absolute Eosinophils Absolute Basophils ESR PT INR APTT Sodium Potassium Chloride Carbon Dioxide Anion Gap BUN Creatinine Est GFR (CKD-EPI 2020) Glucose Calcium Magnesium Total Bilirubin AST ALT Alkaline Phosphatase Creatine Kinase Troponin I 69 H* C-Reactive Protein Total Protein Albumin Lipase Vitamin B12 536 Folate 12.3 Urine Color Yellow Urine Clarity Clear Urine pH 7.0 Ur Specific [place] 1.010 Urine Protein Negative Urine Ketones Negative Urine Blood Negative Urine Nitrite Negative Urine Bilirubin Negative Urine Urobilinogen 0.2 Ur Leukocyte Esterase Negative Urine Glucose Negative Acetaminophen < 2 COVID-19 Source SARS-CoV-2 (PCR) Influenza Type A (PCR) Influenza Type B (PCR) RSV (PCR) Add-On Test Request 05/20/23 05/20/23 05/20/23 17:14 16:15 16:10 WBC RBC Hgb Hct MCV MCH MCHC RDW Plt Count MPV Immature Gran % Neutrophils % Lymphocytes % Monocytes % Eosinophils % Basophils % Nucleated RBC % Absolute Neutrophils Absolute Lymphocytes Absolute Monocytes Absolute Eosinophils Absolute Basophils ESR PT INR APTT Sodium Potassium Chloride Carbon Dioxide Anion Gap BUN Creatinine Est GFR (CKD-EPI 2020) Glucose Calcium Magnesium Total Bilirubin AST ALT Alkaline Phosphatase Creatine Kinase Troponin I C-Reactive Protein Total Protein Albumin Lipase Vitamin B12 Folate Urine Color Urine Clarity Urine pH Ur Specific [place] Urine Protein Urine Ketones Urine Blood Urine Nitrite Urine Bilirubin Urine Urobilinogen Ur Leukocyte Esterase Urine Glucose Acetaminophen COVID-19 Source Nasopharynx SARS-CoV-2 (PCR) Negative Influenza Type A (PCR) Negative Influenza Type B (PCR) Negative RSV (PCR) Negative Add-On Test Request Pending DONE 05/20/23 05/20/23 05/20/23 14:05 09:30 09:30 WBC RBC Hgb Hct MCV MCH MCHC RDW Plt Count MPV Immature Gran % Neutrophils % Lymphocytes % Monocytes % Eosinophils % Basophils % Nucleated RBC % Absolute Neutrophils Absolute Lymphocytes Absolute Monocytes Absolute Eosinophils Absolute Basophils ESR PT INR APTT Sodium Potassium Chloride Carbon Dioxide Anion Gap BUN Creatinine Est GFR (CKD-EPI 2020) Glucose Calcium Magnesium Total Bilirubin AST ALT Alkaline Phosphatase Creatine Kinase 993 H Troponin I 71 H* 74 H* C-Reactive Protein 0.16 Total Protein 8.3 H Albumin 4.1 Lipase 50 Cancelled Vitamin B12 Folate Urine Color Urine Clarity Urine pH Ur Specific [place] Urine Protein Urine Ketones Urine Blood Urine Nitrite Urine Bilirubin Urine Urobilinogen Ur Leukocyte Esterase Urine Glucose Acetaminophen COVID-19 Source SARS-CoV-2 (PCR) Influenza Type A (PCR) Influenza Type B (PCR) RSV (PCR) Add-On Test Request 05/20/23 05/20/23 09:30 09:29 WBC 10.37 RBC 6.29 H Hgb 18.1 H Hct 53.8 H MCV 86 MCH 28.8 MCHC 33.6 RDW 13.2 Plt Count 200 MPV 8.7 Immature Gran % 0.3 Neutrophils % 78.4 Lymphocytes % 12.6 Monocytes % 7.2 Eosinophils % 1.1 Basophils % 0.4 Nucleated RBC % 0.0 Absolute Neutrophils 8.13 H Absolute Lymphocytes 1.31 Absolute Monocytes 0.75 Absolute Eosinophils 0.11 Absolute Basophils 0.04 ESR 18 PT 9.7 INR 1.0 APTT 27.3 Sodium 140 Potassium 4.2 Chloride 103 Carbon Dioxide 28.4 Anion Gap 8.6 BUN 23 H Creatinine 1.3 Est GFR (CKD-EPI 2020) 66.51 Glucose 104 Calcium 9.4 Magnesium 2.2 Total Bilirubin 0.6 AST 54 H ALT 75 H Alkaline Phosphatase 82 Creatine Kinase Troponin I Cancelled C-Reactive Protein Total Protein Albumin Lipase Vitamin B12 Folate Urine Color Yellow Urine Clarity Clear Urine pH 7.0 Ur Specific [place] 1.015 Urine Protein Negative Urine Ketones Negative Urine Blood Negative Urine Nitrite Negative Urine Bilirubin Negative Urine Urobilinogen 0.2 Ur Leukocyte Esterase Negative Urine Glucose Negative Acetaminophen COVID-19 Source SARS-CoV-2 (PCR) Influenza Type A (PCR) Influenza Type B (PCR) RSV (PCR) Add-On Test Request PFSH All Active Problems (Updated 05/20/23 @ 21:00 by lOga Clement DO) Anal fistula (Acute) Chronic diarrhea (Acute) Chronic anterior anal fissure (Acute) CVA (cerebral vascular accident) (Chronic) PTSD (post-traumatic stress disorder) (Acute) Discharge planning issues (Acute) DVT prophylaxis (Acute) Elevated CPK (Acute) Elevated troponin (Acute) Chest discomfort (Acute) Obesity (BMI 30.0-34.9) (Acute) Anxiety (Chronic) Depression (Chronic) Hypertension (Chronic) Crohn disease (Chronic) Chest pain (Acute) Abdominal pain (Acute) Acute non-ST elevation myocardial infarction (NSTEMI) (Acute) Abnormal transaminases (Acute) Medical History (Updated 05/20/23 @ 21:00 by Olga Clement DO) Pancreatitis Anemia TBI (traumatic brain injury) Surgical History (Updated 05/20/23 @ 21:00 by Olga Clement DO) S/P exam under anesthesia with hemorrhoid banding S/P hemorrhoidectomy History of resection of terminal ileum H/O abdominal surgery History of incisional hernia repair Social History Smoking/Tobacco Use Status: Former Tobacco Use Smoking risk assessment performed?: Yes Alcohol Intake: former Drug use: Occasionally Substance use type: marijuana Housing: apartment Do you feel safe at home: Yes Do you feel safe in your relationship?: Yes Time Spent with Patient Time Spent with Patient: <45 minutes Time was spent: other
[2023-05-21 09:33] LABS: Lab Add On Test DONE
== END 2023-05-20 21:30 | disposition left against medical advice (07) | DRG 392 ==
LOC: ER 16:59 → ICU 17:11
PROVIDERS: Surgery; Admitting Provider Internal Medicine; Emergency Provider Emergency Medicine Emergency Medical Services; PCP Nurse Practitioner Family; Visit Provider Internal Medicine
DX: K52.9 Noninfective gastroenteritis and colitis, unspecified (principal); K50.90 Crohn's disease, unspecified, without complications; M62.82 Rhabdomyolysis; R07.89 Other chest pain; I10 Essential (primary) hypertension; F32.A Depression, unspecified; F41.9 Anxiety disorder, unspecified; F29 Unspecified psychosis not due to a substance or known physiological condition; Z86.73 Personal history of transient ischemic attack (TIA), and cerebral infarction without residual deficits; F43.10 Post-traumatic stress disorder, unspecified; E66.9 Obesity, unspecified; I25.2 Old myocardial infarction; R74.01 Elevation of levels of liver transaminase levels; D64.9 Anemia, unspecified; Z87.891 Personal history of nicotine dependence; F12.90 Cannabis use, unspecified, uncomplicated; R74.8 Abnormal levels of other serum enzymes; Z90.49 Acquired absence of other specified parts of digestive tract; K60.3 Anal fistula; Z68.29 Body mass index [BMI] 29.0-29.9, adult
CPT/HCPCS: 00123; 71275; 74177; 80053; 82550; 83690; 85652; 87637; 93005; 96365; 96366; 96367; 96375; 99222; 99291; 80329; 81003; 82607; 82746; 83735; 84484; 85025; 85610; 85730; 86140; 93010; 99223; J0131; J2405; J3010; J3490